=== PATIENT | male | born 1940 | race Caucasian/White ===

== ENCOUNTER → 2021-06-10 09:45 | Outpatient (BNVA) | payer MEDICARE, OTHER, SELFPAY | PROVIDERS: PCP Family Medicine; Visit Provider Internal Medicine Pulmonary Disease | DX: J45.909 Unspecified asthma, uncomplicated (principal) | CPT/HCPCS: 99202 ==

== ENCOUNTER → 2021-12-04 11:08 | Outpatient (BNVA) | payer MEDICARE, OTHER, SELFPAY | PROVIDERS: PCP Family Medicine; Visit Provider Internal Medicine Pulmonary Disease | DX: J45.909 Unspecified asthma, uncomplicated (principal) | CPT/HCPCS: 99212 ==

== ENCOUNTER → 2022-06-09 09:43 | Outpatient (BNVA) | payer MEDICARE, OTHER, SELFPAY | PROVIDERS: PCP Family Medicine; Visit Provider Internal Medicine Pulmonary Disease | DX: J45.909 Unspecified asthma, uncomplicated (principal) | CPT/HCPCS: 99212 ==

== ENCOUNTER 2022-07-15 07:52 | Outpatient (REF) | payer MEDICARE, OTHER, SELFPAY ==
--- NOTE | 2022-07-15 13:03 | PFT_ITS ---
FLOWS: FEV1 121% of predicted at 3.12 L. FVC 102% of predicted at 3.78 L. FEV1 to FVC ratio of 0.83. No bronchodilator response except in small to medium airways. LUNG VOLUMES: Total lung capacity 95% predicted at 6.48 L. Residual volume 104% of predicted at 2.73 L. Slow vital capacity 90% of predicted at 3.75 L. Expiratory reserve volume 76% of predicted at 0.79 L. Diffusion capacity is normal. IMPRESSION: No obstructive or restrictive ventilatory defect. No bronchodilator response except in small to medium airways. Essentially normal pulmonary function test. MD EFFIE Black/MODL / [id number]
== END 2022-07-15 07:53 | disposition home or self-care (01) ==
LOC: HO.RESP 07:52
PROVIDERS: PCP Family Medicine; Visit Provider Internal Medicine Pulmonary Disease
DX: J45.909 Unspecified asthma, uncomplicated (principal)
CPT/HCPCS: 94060; 94727; 94729

== ENCOUNTER 2022-09-05 09:05 | Emergency (ER) | payer MEDICARE, OTHER, SELFPAY ==
--- NOTE | ~2022-09-05 | US_ITS ---
EXAMINATION: US VENOUS ULTRASOUND WITH DOPPLER LOWER EXTREMITY, BILATERAL CLINICAL INFORMATION: Faint pedal pulses COMPARISON: None TECHNIQUE: Ultrasound of the deep veins is performed from the hip to the calf with compression sonography and color and pulse Doppler assessment. Spectral analysis with color-flow imaging is performed. FINDINGS: RIGHT: There is normal venous compression and respiratory variation and augmented flow. The visualized common femoral vein, superficial femoral vein, profunda femoral vein, popliteal vein, and the trifurcation region shows no evidence of deep venous thrombosis. There is no significant popliteal fossa cyst. LEFT: There is normal venous compression and respiratory variation and augmented flow. The visualized common femoral vein, superficial femoral vein, profunda femoral vein, popliteal vein, and the trifurcation region shows no evidence of deep venous thrombosis. There is no significant popliteal fossa cyst. If the patient's symptoms persist, followup ultrasound in 5 days 7 days might be of value to exclude proximal propagation from a non-visualized calf vein. US/US venous duplex LE BI IMPRESSION: No DVT demonstrated in the bilateral lower extremity.
--- NOTE | ~2022-09-05 | CT_ITS ---
EXAMINATION: CT ANGIOGRAPHY LEGS WITH RUNOFF CLINICAL INFORMATION: Evaluate stenosis COMPARISON: Lower extremity arterial ultrasound September 15, 2022 TECHNIQUE: Axial imaging was performed through the abdomen, pelvis and lower extremities following the administration of 99 mL's Omnipaque [address] examination was performed using dose optimization techniques as appropriate, variously including the following: *Automated exposure control *Adjustment of mA and/or kV according to patient size (this includes techniques or standardized protocols for targeted exams where dose is matched to indication/reason for exam; i.e. extremities or head) *Use of iterative reconstruction technique DLP: 343 mGy-cm FINDINGS: VASCULAR FINDINGS: The abdominal aorta is normal in caliber but demonstrates moderate atherosclerotic disease. The celiac access and takeoff of the superior mesenteric artery are diseased but demonstrate only mild stenosis. There is mild stenosis at the takeoff of the left renal artery and moderate stenosis at the takeoff of the right renal artery, however, both renal arteries are patent. The inferior mesenteric artery demonstrates ostial stenosis but is patent. Mild stenosis within the right common iliac artery. Right external iliac artery is widely patent. Right internal iliac artery is diseased but patent. There is mild narrowing of the right common femoral artery. Right profundus femoris artery is patent. There is scattered moderate atherosclerotic disease throughout the right superficial femoral artery with a few scattered areas of mild to moderate stenoses and an area of severe stenosis within the distal right superficial femoral artery (image [id number], series 6). The popliteal artery is severely diseased but appears patent. Severe atherosclerotic disease throughout the deep arteries of the calf limits evaluation for patency within the vessels, however, there appears to be a three-vessel runoff of the right calf. Mild stenosis of the left common iliac artery. The left external iliac artery is widely patent. Left internal iliac artery is diseased but patent. Severe stenosis at the junction of the left common femoral artery and proximal superficial femoral artery (image [id number]). Left profundus femoris artery is patent. There is scattered moderate atherosclerotic disease throughout the majority of the left superficial femoral artery with scattered mild to moderate stenoses. There is an area of severe stenosis within the distal aspect of the left superficial femoral artery (image [id number]). The left popliteal artery is diseased and demonstrates moderate stenosis. Severe atherosclerotic disease throughout the deep arteries of the calf limits evaluation for patency within the vessels, however, there appears to be a three-vessel runoff of the left calf. NONVASCULAR FINDINGS: Visualized portion of the liver are unremarkable. The gallbladder is normal in appearance. The pancreas is normal in appearance. Visualized portions of the spleen are unremarkable. The adrenal glands are unremarkable. Symmetrically enhancing kidneys. There is no hydronephrosis. Visualized loops of small and large bowel are normal in caliber. There is a mild to moderate stool burden throughout the majority the colon with a prominent stool burden within the rectal vault. Normal appendix. The bladder is relatively decompressed but grossly unremarkable. The prostate gland is not enlarged. There is no gross free pelvic fluid. No inguinal lymphadenopathy. Severe diffuse degenerative changes of the spine. CT/CT angio abd aorta runoff IMPRESSION: 1. Severe stenosis at the junction of the left common femoral artery and proximal superficial femoral artery. 2. Severe stenosis within the distal aspect of the left superficial femoral artery. 3. Severe stenosis within the distal aspect of the right superficial femoral artery. 4. 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 This was better appreciated on ultrasound imaging from earlier today.
--- NOTE | ~2022-09-05 | US_ITS ---
EXAMINATION: ULTRASOUND ARTERIAL DUPLEX LOWER EXTREMITY BILATERAL CLINICAL INFORMATION: Faint pedal pulses COMPARISON: None TECHNIQUE: Grayscale, color and spectral Doppler imaging was obtained of the deep arterial system of both lower extremities. FINDINGS: Right lower extremity: Scattered atherosclerotic disease. Patent deep arterial system of the right lower extremity from the common femoral artery through the calf. Normal triphasic waveforms are noted within the common femoral artery and proximal portion of the right superficial femoral artery with primarily monophasic waveforms throughout the remainder of the right lower extremity consistent with peripheral vascular disease. No focally elevated velocities to suggest an area of hemodynamically significant stenosis. Left lower extremity: Scattered atherosclerotic disease. Patent deep arterial system of the left lower extremity from the common femoral artery through the calf. Elevated velocities within the left common femoral artery suggests an area of hemodynamically significant stenosis. Normal multiphasic waveforms are present within the right superficial femoral artery although primarily monophasic waveforms are noted within the popliteal artery suggesting peripheral vascular disease. US/US arterial duplex LE BI IMPRESSION: 1. Peripheral vascular disease of the bilateral lower extremities. 2. Elevated velocities within the left common femoral artery suggests an area of hemodynamically significant stenosis.
[2022-09-05 09:12] VITALS: BP 181/93; PULSE 83; RESP 16; TEMP 36.6; O2SAT 100; BMI 26.4
--- NOTE | 2022-09-05 10:26 | ECG_ITS ---
Test Reason : LIGHTHEADEDNESS Blood Pressure : / mmHG Vent. Rate : 059 BPM Atrial Rate : 059 BPM P-R Int : 150 ms QRS Dur : 094 ms QT Int : 428 ms P-R-T Axes : 058 -28 -10 degrees QTc Int : 423 ms Sinus bradycardia Otherwise normal ECG No previous ECGs available Referred By: Meg Judd Electronically Signed By:Ryan Saleh
--- NOTE | 2022-09-05 10:26 | ED.GENADULT ---
HPI - General Adult General Chief complaint: General Medical Stated complaint: HBP, pain in L leg, quest blood clot Time Seen by Provider: 09/05/22 09:54 Source: patient Mode of arrival: ambulatory History of Present Illness HPI narrative: 82-year-old male former 30+ pack-year smoker, asthma, known blockage in RLE followed by Ant on baby ASA, presenting to the ED complaining of brief episode of lightheadedness/dizziness on [place] the mall lasting a few seconds, self resolved with assoc HTN 180's/90. 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 and 0.5mg at night. Now reports LLE pain x2 days, and RLE numbness/feeling cold x today. denies dizziness/ lightheadedness at present, CP/SOB, headache, vision change/loss, weakness, lower extremity edema Onset (ago): day(s) Related Data Home Medications Medication Instructions Recorded Confirmed albuterol sulfate 90 mcg/actuation 2 puff inhalation Q6H PRN 06/10/21 aerosol inhaler amlodipine 5 mg-valsartan 320 mg tab PO 06/10/21 tablet aspirin 81 mg tablet,delayed 81 mg PO DAILY 06/10/21 release atorvastatin 20 mg tablet mg PO 06/10/21 brimonidine 0.2 % eye drops drp ophthalmic (eye) 06/10/21 metoprolol succinate 25 mg mg PO 06/10/21 tablet,extended release 24 hr nitroglycerin 0.4 mg sublingual 0.4 mg sublingual Q5M PRN 06/10/21 tablet (Nitrostat) gabapentin 300 mg capsule 300 mg PO DAILY 06/09/22 irbesartan 300 mg tablet 300 mg PO DAILY 06/09/22 latanoprost 0.005 % eye drops 0 drp ophthalmic (eye) 06/09/22 Previous Rx's Medication Instructions Recorded Flovent HFA 110 mcg/actuation 2 puff inhalation BID 30 days #12 05/25/22 aerosol inhaler (fluticasone grams propionate) fluticasone 232 mcg-salmeterol 14 1 inh inhalation BID 30 days #1 ea 08/20/22 mcg/actuation breath activated powdr (AirDuo RespiClick) clopidogrel 75 mg tablet (Plavix) 75 mg PO DAILY 30 days #30 tabs 09/05/22 Allergies Allergy/AdvReac Type Severity Reaction Status Date / Time No Known Allergies Allergy Verified 12/04/21 11:11 Review of Systems Review of Systems: Constitutional: No Fever, No Chills, No Fatigue, No Malaise ENT/Mouth: No Ear Pain, No Nasal Congestion, No sore throat, No Rhinorrhea, No Swallowing Difficulty Eyes: No Eye Pain, No Swelling, No Redness, No Vision Changes Cardiovascular: No Chest Pain, No SOB, No Dyspnea on Exertion, No Orthopnea, No Edema, No Palpitations Respiratory: No Cough, No Sputum, No Dyspnea Gastrointestinal: No Nausea, No Vomiting, No Diarrhea, No Constipation, No Abdominal pain Genitourinary: No irregular bleeding, No Dysuria, No Urinary Incontinence/retention, No Flank Pain, No Urinary Flow Changes Musculoskeletal: + joint pain, No Myalgias, No Joint Swelling Skin: No Skin Lesions, No rash Neuro: No Weakness, + Numbness, + Paresthesias, No Loss of Consciousness, + Dizziness/ lightheadedness (resolved), No Headache Yes all other systems are reviewed and are negative Constitutional: Constitutional: Reports as per HPI Neurologic: Denies Abnormal speech present [facility] Past Medical History Attestation statement: The following information was validated with the patient. Social History Social History Alcohol intake: unknown Smoked in Last 30 Days: No Use of substances other than those prescribed or required for medical reasons: Unknown Advance Directives: No Advance Directives Information Provided: Yes Physical Exam ED Vital Signs: Vital Signs - 24 hr 09/05/22 09:12 09/05/22 11:06 09/05/22 11:12 Temperature 98 F Pulse Rate 83 58 65 Respiratory Rate 16 19 Blood Pressure 181/93 H 139/60 148/70 H Pulse Oximetry 100 94 Oxygen Delivery Method Room Air Room Air 09/05/22 11:07 09/05/22 11:09 09/05/22 12:00 Temperature 98.9 F Pulse Rate 59 65 65 Respiratory Rate 18 Blood Pressure 157/64 H 148/70 H 148/70 H Pulse Oximetry 97 Oxygen Delivery Method Room Air BMI result Body Mass Index 26.4 Const General: cooperative, comfortable, no acute distress and well developed Orientation/consciousness: patient oriented x3 Limitations: no limitations HENMT Head: Yes normal to inspection and Yes atraumatic Ears: hearing grossly normal bilaterally General nose exam: Normal external nose present Face and sinus: Yes normal facial exam Throat: Yes posterior oropharynx normal and Yes uvula midline Eyes General: appearance normal, both eyes and all related structures Pupils: Equal, round and reactive pupils present EOM: EOMs intact bilaterally Neck Neck: Yes normal visual inspection and Yes no meningeal signs Resp Effort & Inspection: normal respiratory effort and no respiratory distress Auscultation: clear to auscultation bilaterally, no crackles, no rales and no rhonchi Cardio Other: bilateral PT and DP pulses dooplerable Rate: regular rate Heart sounds: S1 normal heart sound present and S2 normal heart sound present GI Inspection: Yes normal to inspection Palpation (GI): Soft to palpation, nontender, no guarding and not rigid Skin Rashes: no rashes Wounds: no wounds Neuro General: patient oriented x3, gait normal, tone normal, moves all extremities, no meningeal signs, no focal motor deficits and CN's II-XI intact bilaterally Cranial nerves: Yes CN's II-XII intact bilaterally and Yes Equal, round and reactive pupils present Cognition (Neuro): normal cognition Speech: No Abnormal speech present Gait exam (Neuro): Normal gait present Motor exam (neuro): 5/5 motor strength present throughout and Pronator motor function not present Extrem Other: no appreciable pedal edema/erythema or ecchymosis. No calf ttp General: Yes normal to inspection Course Course Course Narrative: -1141-- no leukocytosis. H&H stable. BUN mildly elevated at 18. BNP 111 - COVID-19/influenza negative US arterial duplex LE BI IMPRESSION: 1.? Peripheral vascular disease of the bilateral lower extremities. 2.? Elevated velocities within the left common femoral artery suggests an area of hemodynamically significant stenosis. >Will consult vascular Dr. Burton US venous duplex LE BI IMPRESSION: No DVT demonstrated in the bilateral lower extremity. >1200-- vascular recommended with patient's acute pain/ new finding transfer to [facility] >> [facility] not accepting, will try [facility] > spoke with vascular surgeon Dr. Escamilla at [facility] who recommended CTA abdomen pelvis with runoff for further evaluation prior to transfer and re-consultation with our vascular w/results - repeat troponin equivocal CT angio abd aorta runoff IMPRESSION: 1.? Severe stenosis at the junction of the left common femoral artery and proximal superficial femoral artery. 2.? Severe stenosis within the distal aspect of the left superficial femoral artery. 3.? Severe stenosis within the distal aspect of the right superficial femoral artery. 4.? 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 This was better appreciated on ultrasound imaging from earlier today. ? >> patient reports symptomatic improvement, states pain is subsiding. Re consulted vascular Dr. Burton who recommended patient be discharged on aspirin and Plavix daily with close outpatient follow-up. Patient admits he has follow-up with his vascular surgeon at [facility] on , will call to see if there is an earlier appointment available. Results discussed with patient including worrisome signs and symptoms and strict return precautions, and when to return to the emergency department. They verbalized understanding and feel safe for discharge at this time. Medications Administered Discontinued Medications Generic Name Dose Route Start Last Admin Trade Name Dewayne PRN Reason Stop Dose Admin Clopidogrel Bisulfate 75 mg 09/05/22 15:59 09/05/22 16:09 Clopidogrel Bisulfate 75 Mg Tablet PO 09/05/22 16:00 75 mg ONCE ONE Administration Sodium Chloride 500 mls @ 999 mls/hr 09/05/22 14:15 09/05/22 14:44 Ns IV 09/05/22 14:45 Infused .Q31M ANT Infusion Iohexol 100 ml 09/05/22 14:17 09/05/22 14:17 Iohexol 350 Mg/Ml 100 Ml Infus..Btl IV 09/05/22 14:18 100 ml ONCE ONE Administration Medical Decision Making Medical Decision Making MDM Narrative: 82-year-old male former 30+ pack-year smoker, asthma, known blockage in RLE followed by Ant on baby ASA, presenting to the ED complaining of brief episode of lightheadedness/dizziness on [place] the mall lasting a few seconds, now w/ LLE pain x2 days, and RLE numbness/feeling cold x today. On exam mildly hypertensive 181/93, NAD, nontoxic appearing, bilateral lower extremity pulses dopplerable, no focal neuro deficits, nontoxic appearing. Concern for peripheral arterial disease versus DVT. Rule out atypical ACS vs metabolic/infectious etiologies. Low suspicion for CVA/TIA or ICH plan: EKG, labs, orthostatics, arterial and venous duplex ultrasound Please refer to course for remaining clinical decision making, interpretation of labs/imaging results, and discussions with consultants and/or family members. Differential Diagnosis Differential Diagnoses: The differential diagnosis associated with the presentation includes As above Admission/Observation Consideration of admission/observation: Escalation of care including admission/observation considered Consult Healthcare Provider Management of the patient was discussed with: [employer] Lab Data MDM Lab Attestation statement: I reviewed the patient's lab results. 09/05/22 11:03 09/05/22 11:03 Labs: Lab Results 09/05/22 09/05/22 09/05/22 Range/Units 11:02 11:02 11:02 WBC (4.8-10.8) X10*3/uL RBC (4.60-5.80) X10*6/uL Hgb (14.0-18.0) g/dl Hct (42.0-52.0) % MCV (80.0-98.0) fL MCH (27.0-33.0) pg MCHC (31.0-36.0) g/dl RDW (11.0-16.0) % Plt Count (160-400) X10*3/uL MPV (9.4-12.4) fL Immature Gran % (Auto) (0.0-0.4) % Neut % (Auto) (45-73) % Lymph % (Auto) (20-40) % [place] % (Auto) (2-11) % Eos % (Auto) (0-4) % Baso % (Auto) (0-2) % Lymph # (Auto) (1.2-4.9) X10*3/uL [place] # (Auto) (0.1-1.2) X10*3/uL Eos # (Auto) (0.0-0.4) X10*3/uL Baso # (Auto) (0.0-0.2) X10*3/uL Abs Immat Gran (auto) (0.00-0.03) X10*3/uL Absolute Neuts (auto) (2.0-8.3) x10*3/uL Absolute Nucleated RBC (0.0-0.012) X10*3/uL Nucleated RBC % (auto) (0.0-0.2) /100WBC PT (10.0-13.1) SEC INR (0.9-1.1) APTT (26.0-36.4) SEC Sodium (135-145) mmol/L Potassium (3.3-5.1) mmol/L Chloride (96-108) mmol/L Carbon Dioxide (22-29) mmol/L Anion Gap (12-20) BUN (9-16) mg/dL Creatinine (0.5-1.4) mg/dL Estim Creat Clear Calc Estimated GFR Random Glucose (60-115) mg/dL Calcium (8.4-10.2) mg/dL Magnesium (1.6-2.6) mg/dL Total Bilirubin (0.0-1.0) mg/dL Direct Bilirubin (0.0-0.5) mg/dL AST (5-37) U/L ALT (0-40) U/L Alkaline Phosphatase (39-117) U/L Troponin I High Sens 5.8 (<3.5-35.0) ng/L B-Natriuretic Peptide 111 H (<100) pg/mL Total Protein (6.5-8.0) g/dL Albumin (3.5-5.0) g/dL COVID-19 (MICHAEL) (Negative) COVID-19 Clin Com Influenza Type A (LUPE) Negative (Negative) Influenza Type B (LUPE) Negative (Negative) Influenza A & B Note See Note 09/05/22 09/05/22 09/05/22 Range/Units 11:02 11:03 11:03 WBC 9.9 (4.8-10.8) X10*3/uL RBC 4.42 L (4.60-5.80) X10*6/uL Hgb 13.6 L (14.0-18.0) g/dl Hct 40.3 L (42.0-52.0) % MCV 91.2 (80.0-98.0) fL MCH 30.8 (27.0-33.0) pg MCHC 33.7 (31.0-36.0) g/dl RDW 13.8 (11.0-16.0) % Plt Count 208 (160-400) X10*3/uL MPV 9.4 (9.4-12.4) fL Immature Gran % (Auto) 0.4 (0.0-0.4) % Neut % (Auto) 85.4 H (45-73) % Lymph % (Auto) 7.0 L (20-40) % [place] % (Auto) 6.3 (2-11) % Eos % (Auto) 0.2 (0-4) % Baso % (Auto) 0.7 (0-2) % Lymph # (Auto) 0.7 L (1.2-4.9) X10*3/uL [place] # (Auto) 0.6 (0.1-1.2) X10*3/uL Eos # (Auto) 0.0 (0.0-0.4) X10*3/uL Baso # (Auto) 0.1 (0.0-0.2) X10*3/uL Abs Immat Gran (auto) 0.04 H (0.00-0.03) X10*3/uL Absolute Neuts (auto) 8.5 H (2.0-8.3) x10*3/uL Absolute Nucleated RBC 0.000 (0.0-0.012) X10*3/uL Nucleated RBC % (auto) 0.0 (0.0-0.2) /100WBC PT (10.0-13.1) SEC INR (0.9-1.1) APTT (26.0-36.4) SEC Sodium 139 (135-145) mmol/L Potassium 4.2 (3.3-5.1) mmol/L Chloride 104 (96-108) mmol/L Carbon Dioxide 26 (22-29) mmol/L Anion Gap 13 (12-20) BUN 18 H (9-16) mg/dL Creatinine 0.76 (0.5-1.4) mg/dL Estim Creat Clear Calc 72.5 Estimated GFR > 60 Random Glucose 117 H (60-115) mg/dL Calcium 9.4 (8.4-10.2) mg/dL Magnesium 1.9 (1.6-2.6) mg/dL Total Bilirubin 0.5 (0.0-1.0) mg/dL Direct Bilirubin 0.2 (0.0-0.5) mg/dL AST 19 (5-37) U/L ALT 16 (0-40) U/L Alkaline Phosphatase 78 (39-117) U/L Troponin I High Sens (<3.5-35.0) ng/L B-Natriuretic Peptide (<100) pg/mL Total Protein 6.7 (6.5-8.0) g/dL Albumin 4.4 (3.5-5.0) g/dL COVID-19 (MICHAEL) Negative (Negative) COVID-19 Clin Com See Note Influenza Type A (LUPE) (Negative) Influenza Type B (LUPE) (Negative) Influenza A & B Note 09/05/22 09/05/22 Range/Units 11:03 14:31 WBC (4.8-10.8) X10*3/uL RBC (4.60-5.80) X10*6/uL Hgb (14.0-18.0) g/dl Hct (42.0-52.0) % MCV (80.0-98.0) fL MCH (27.0-33.0) pg MCHC (31.0-36.0) g/dl RDW (11.0-16.0) % Plt Count (160-400) X10*3/uL MPV (9.4-12.4) fL Immature Gran % (Auto) (0.0-0.4) % Neut % (Auto) (45-73) % Lymph % (Auto) (20-40) % [place] % (Auto) (2-11) % Eos % (Auto) (0-4) % Baso % (Auto) (0-2) % Lymph # (Auto) (1.2-4.9) X10*3/uL [place] # (Auto) (0.1-1.2) X10*3/uL Eos # (Auto) (0.0-0.4) X10*3/uL Baso # (Auto) (0.0-0.2) X10*3/uL Abs Immat Gran (auto) (0.00-0.03) X10*3/uL Absolute Neuts (auto) (2.0-8.3) x10*3/uL Absolute Nucleated RBC (0.0-0.012) X10*3/uL Nucleated RBC % (auto) (0.0-0.2) /100WBC PT 12.0 (10.0-13.1) SEC INR 1.0 (0.9-1.1) APTT 31.5 (26.0-36.4) SEC Sodium (135-145) mmol/L Potassium (3.3-5.1) mmol/L Chloride (96-108) mmol/L Carbon Dioxide (22-29) mmol/L Anion Gap (12-20) BUN (9-16) mg/dL Creatinine (0.5-1.4) mg/dL Estim Creat Clear Calc Estimated GFR Random Glucose (60-115) mg/dL Calcium (8.4-10.2) mg/dL Magnesium (1.6-2.6) mg/dL Total Bilirubin (0.0-1.0) mg/dL Direct Bilirubin (0.0-0.5) mg/dL AST (5-37) U/L ALT (0-40) U/L Alkaline Phosphatase (39-117) U/L Troponin I High Sens 5.6 (<3.5-35.0) ng/L B-Natriuretic Peptide (<100) pg/mL Total Protein (6.5-8.0) g/dL Albumin (3.5-5.0) g/dL COVID-19 (MICHAEL) (Negative) COVID-19 Clin Com Influenza Type A (LUPE) (Negative) Influenza Type B (LUPE) (Negative) Influenza A & B Note Independent Interpretation I performed an independent interpretation of an: EKG ( my interpretation: Sinus Jass at a rate of 59. Slurred S wave in lead 1, inverted T-wave in lead 3, peak T-waves in V3 through V5. No STEMI) Radiology Impression Discussion of test interpretation with radiology: I have reviewed the radiologist's reading. External Record Review External record reviewed: Office record Prescription Management I considered prescription management with: Pain Medication Chronic Conditions Patient?s care impacted by: Hypertension Critical Care Time Critical Care Time Critical Care Time: Yes Total Critical Care Time: 50 Attestation: I have personally provided critical care time exclusive of time spent on separately billable procedures. Time includes review of lab data, radiology results, discussion with consultants, and monitoring for potential decompensation. Intervention performed as documented. Discharge Plan Discharge Clinical Impression: Peripheral arterial disease Patient Disposition: Home, Self-Care Instructions: Peripheral Artery Disease (ED) Additional Instructions: Your blood work was reassuring. Your CAT scan and ultrasound appreciate severe arterial stenosis of your bilateral lower extremities. After speaking with our vascular surgeon it is recommended you take daily aspirin and Plavix you need very close follow-up with your vascular surgeon , your also supplied with our vascular surgeons information If symptoms persist, worsen, your legs change color, become increasingly painful, numb, or weak return to the emergency department immediately Prescriptions: New clopidogrel [Plavix] 75 mg tablet 75 mg PO DAILY 30 Days Qty: 30 0RF No Action Flovent HFA 110 mcg/actuation HFA aerosol inhaler 2 puff inhalation BID 30 Days Qty: 12 6RF fluticasone propion-salmeterol [AirDuo RespiClick] 232-14 mcg/actuation aerosol powdr breath activated 1 inh inhalation BID 30 Days Qty: 1 1RF atorvastatin 20 mg tablet PO amlodipine-valsartan 5-320 mg tablet PO metoprolol succinate 25 mg tablet extended release 24 hr PO brimonidine 0.2 % drops ophthalmic (eye) aspirin 81 mg tablet,delayed release (DR/EC) 81 mg PO DAILY albuterol sulfate 90 mcg/actuation HFA aerosol inhaler 2 puff inhalation Q6H PRN nitroglycerin [Nitrostat] 0.4 mg tablet, sublingual 0.4 mg sublingual Q5M PRN Rx Instructions: do not exceed 3 doses per episode gabapentin 300 mg capsule 300 mg PO DAILY latanoprost 0.005 % drops 0 drp ophthalmic (eye) irbesartan 300 mg tablet 300 mg PO DAILY Referrals: [facility] [place] Vascular Services [Provider Group] - 3 days Interventions: ED Discharge Assessment Last Done: 09/05/22 16:18 Discharge Date/Time: 09/05/22 16:18
[2022-09-05 11:06] VITALS: BP 139/60; PULSE 58
[2022-09-05 11:07] VITALS: BP 157/64; PULSE 59
[2022-09-05 11:09] VITALS: BP 148/70; PULSE 65
[2022-09-05 11:09] LABS: MANUAL DIFF FLAG NO
[2022-09-05 11:12] VITALS: BP 148/70; PULSE 65; RESP 19; O2SAT 94
[2022-09-05 11:14] LABS: Basophils Absolute Auto 0.1 X10*3/uL (0.0-0.2); Basophils Percent Auto 0.7 % (0-2); Eosinophils Percent Auto 0.2 % (0-4); Hematocrit 40.3 % (42.0-52.0); Hemoglobin 13.6 g/dl (14.0-18.0); Imm Gran Abs Auto 0.04 X10*3/uL (0.00-0.03); Imm Gran Pct Auto 0.4 % (0.0-0.4); Lymphocytes Absolute Auto 0.7 X10*3/uL (1.2-4.9); Mean Corpuscular HGB Conc 33.7 g/dl (31.0-36.0); Mean Corpuscular Hemoglobin 30.8 pg (27.0-33.0); Mean Corpuscular Volume 91.2 fL (80.0-98.0); Mean Platelet Volume 9.4 fL (9.4-12.4); Monocytes Absolute Auto 0.6 X10*3/uL (0.1-1.2); Monocytes Percent Auto 6.3 % (2-11); Neutrophils Absolute Auto 8.5 x10*3/uL (2.0-8.3); Neutrophils Percent Auto 85.4 % (45-73); Platelet Count 208 X10*3/uL (160-400); Red Blood Count 4.42 X10*6/uL (4.60-5.80); Red Cell Distribution Width 13.8 % (11.0-16.0); White Blood Count 9.9 X10*3/uL (4.8-10.8)
[2022-09-05 11:22] LABS: IDNOW Serial# 16C4AD1C
[2022-09-05 11:23] LABS: COVID-19 Test Negative (Negative)
[2022-09-05 11:26] LABS: IDNOW Serial# 16C4AD1C; Influenza A Negative (Negative); Influenza B2 Negative (Negative)
[2022-09-05 11:26] LABS: Partial Thromboplastin Time 31.5 SEC (26.0-36.4)
[2022-09-05 11:30] LABS: Alanine Aminotransferase 16 U/L (0-40); Albumin Level 4.4 g/dL (3.5-5.0); Alkaline Phosphatase 78 U/L (39-117); Anion Gap 13 (12-20); Aspartate Amino Transferase 19 U/L (5-37); Bilirubin Direct 0.2 mg/dL (0.0-0.5); Bilirubin Total 0.5 mg/dL (0.0-1.0); Blood Urea Nitrogen 18 mg/dL (9-16); Calcium 9.4 mg/dL (8.4-10.2); Carbon Dioxide 26 mmol/L (22-29); Chloride 104 mmol/L (96-108); Creatinine Clr Calc Pharmacy 72.5; Estimated Glomerular Filt Rate > 60; Glucose Random 117 mg/dL (60-115); Magnesium 1.9 mg/dL (1.6-2.6); Potassium 4.2 mmol/L (3.3-5.1); Sodium 139 mmol/L (135-145); Total Protein 6.7 g/dL (6.5-8.0)
[2022-09-05 11:37] LABS: B Type Natriuretic Peptide 111 pg/mL (<100)
[2022-09-05 12:00] VITALS: BP 148/70; PULSE 65; RESP 18; TEMP 37.2; O2SAT 97
--- NOTE | 2022-09-05 12:05 | PC.NURSE ---
Pedal pulses present bilaterally, soft w/ doppler. Sites assess: DP and PT felt.
--- NOTE | 2022-09-05 12:15 | MHC.EDTECH ---
pt to be transfered to another hospital per provider. [facility] declined due to being at max capacity. [facility] was then contacted and approved the transfer for pt. awaiting bed assignment . Provider aware
[2022-09-05 12:31] LABS: Troponin-I High Sensitivity 5.8 ng/L (<3.5-35.0)
[2022-09-05] MEDS: 0.9 % Sodium Chloride 500 ML 999 ML IV (14:10)
[2022-09-05] MEDS: iohexoL 350 MG/ML 100 ML INFUS..BTL IV (14:17)
[2022-09-05 14:56] LABS: Troponin-I High Sensitivity 5.6 ng/L (<3.5-35.0)
[2022-09-05] MEDS: Clopidogrel Bisulfate 75 MG TABLET PO (16:09)
== END 2022-09-05 16:18 | disposition home or self-care (01) ==
PROVIDERS: Physician Assistant; Emergency Provider Emergency Medicine Emergency Medical Services; PCP Family Medicine
DX: I73.9 Peripheral vascular disease, unspecified (principal); R60.0 Localized edema; R42 Dizziness and giddiness; R06.02 Shortness of breath; Z20.828 Contact with and (suspected) exposure to other viral communicable diseases; Z79.899 Other long term (current) drug therapy
CPT/HCPCS: 36415; 75635; 80048; 80076; 83735; 83880; 84484; 85025; 85610; 85730; 87502; 87635; 93005; 93925; 93970; 96360; 96361; 99285; Q9967

== ENCOUNTER 2023-01-03 10:16 | Emergency (ER) | payer MEDICARE, OTHER, SELFPAY ==
--- NOTE | ~2023-01-03 | XR_ITS ---
EXAMINATION: XR CHEST CLINICAL INFORMATION: Chest pain COMPARISON: None available. TECHNIQUE: 2 views of the chest were obtained. FINDINGS: No airspace consolidation or vascular congestion observed. Pleural surfaces appear to be clear. Hiatal hernia noted. There are multilevel thoracic spondylitic changes. Slight wedge deformities approximate level of T6-T8, not appearing hyperacute. XR/XR chest 2V IMPRESSION: No evidence for acute process. Hiatal hernia.
--- NOTE | 2023-01-03 10:18 | ECG_ITS ---
Test Reason : dizziness Blood Pressure : / mmHG Vent. Rate : 062 BPM Atrial Rate : 062 BPM P-R Int : 146 ms QRS Dur : 100 ms QT Int : 408 ms P-R-T Axes : 026 -26 021 degrees QTc Int : 414 ms Normal sinus rhythm Moderate voltage criteria for LVH, may be normal variant ( R in aVL , Luis product ) Borderline ECG When compared with ECG of 05-SEP-2022 10:55, No significant change was found Referred By: Generic ED Physician Electronically Signed By:CARISA SAVAGE
[2023-01-03 10:24] VITALS: BP 153/55; PULSE 66; RESP 18; TEMP 36.6; O2SAT 99; BMI 26.9
[2023-01-03 11:04] LABS: MANUAL DIFF FLAG NO
[2023-01-03 11:06] LABS: Basophils Absolute Auto 0.1 X10*3/uL (0.0-0.2); Basophils Percent Auto 1.1 % (0-2); Eosinophils Absolute Auto 0.1 X10*3/uL (0.0-0.4); Eosinophils Percent Auto 1.4 % (0-4); Hematocrit 39.8 % (42.0-52.0); Hemoglobin 13.1 g/dl (14.0-18.0); Imm Gran Abs Auto 0.02 X10*3/uL (0.00-0.03); Imm Gran Pct Auto 0.3 % (0.0-0.4); Lymphocytes Absolute Auto 0.7 X10*3/uL (1.2-4.9); Lymphocytes Percent Auto 9.9 % (20-40); Mean Corpuscular HGB Conc 32.9 g/dl (31.0-36.0); Mean Corpuscular Hemoglobin 30.8 pg (27.0-33.0); Mean Corpuscular Volume 93.6 fL (80.0-98.0); Mean Platelet Volume 9.2 fL (9.4-12.4); Monocytes Absolute Auto 0.4 X10*3/uL (0.1-1.2); Monocytes Percent Auto 6.5 % (2-11); Neutrophils Absolute Auto 5.4 x10*3/uL (2.0-8.3); Neutrophils Percent Auto 80.8 % (45-73); Platelet Count 206 X10*3/uL (160-400); Red Blood Count 4.25 X10*6/uL (4.60-5.80); Red Cell Distribution Width 13.2 % (11.0-16.0); White Blood Count 6.7 X10*3/uL (4.8-10.8)
[2023-01-03 11:25] LABS: Alanine Aminotransferase 24 U/L (0-40); Alkaline Phosphatase 75 U/L (39-117); Anion Gap 12 (12-20); Aspartate Amino Transferase 22 U/L (5-37); Bilirubin Total 0.5 mg/dL (0.0-1.0); Blood Urea Nitrogen 14 mg/dL (9-16); Calcium 9.2 mg/dL (8.4-10.2); Carbon Dioxide 28 mmol/L (22-29); Chloride 107 mmol/L (96-108); Creatinine Clr Calc Pharmacy 65.5; Estimated Glomerular Filt Rate > 60; Glucose Random 114 mg/dL (60-115); Potassium 4.1 mmol/L (3.3-5.1); Sodium 143 mmol/L (135-145); Total Protein 6.1 g/dL (6.5-8.0)
[2023-01-03 11:31] LABS: B Type Natriuretic Peptide 165 pg/mL (<100)
[2023-01-03 11:33] LABS: Troponin-I High Sensitivity 4.7 ng/L (<3.5-35.0)
--- NOTE | 2023-01-03 11:58 | ED.GENADULT ---
HPI - General Adult General Chief complaint: General Medical Stated complaint: chest pain Time Seen by Provider: 01/03/23 11:32 Source: patient Mode of arrival: ambulatory Limitations: no limitations History of Present Illness HPI narrative: This is a 82-year-old male, with a past medical history of coronary artery disease, peripheral vascular disease with claudication, chyperlipidemia, GERD, hypertension, spinal stenosis, polymyalgia rheumatica, asthma, COPD, and lung mass, who presents emergency department today for evaluation of dizziness and chest pain. Patient reports that yesterday while he was resting he felt lightheaded with jaw pain and some tightness in his chest. He took his blood pressure and was 150s/90s, which is atypical of him. He states that he took a dose of nitroglycerin. He then did not have relief and took another dose of nitroglycerin. His symptoms improved after about 2 hours. At that time he repleted his blood pressure and it improves. He then took a nap. He woke up and felt dizzy then it dropped pain again and took 2 more doses of nitroglycerin and his symptoms resolved again after several hours. Patient reports that this morning he woke up took his blood pressure and his blood pressure was elevated again and had some lightheadedness. He called his plant floor automation manager at [facility] who advised him to go to the emergency department for further evaluation. MD complaint: Dizziness, jaw pain, chest pain Relieving factors: medication (Nitroglycerin) Exacerbating factors: none Associated symptoms: denies other symptoms Treatments prior to arrival: none Related Data Home Medications Medication Instructions Recorded Confirmed albuterol sulfate 90 mcg/actuation 2 puff inhalation Q6H PRN 06/10/21 aerosol inhaler amlodipine 5 mg-valsartan 320 mg tab PO 06/10/21 tablet aspirin 81 mg tablet,delayed 81 mg PO DAILY 06/10/21 release atorvastatin 20 mg tablet mg PO 06/10/21 brimonidine 0.2 % eye drops drp ophthalmic (eye) 06/10/21 metoprolol succinate 25 mg mg PO 06/10/21 tablet,extended release 24 hr nitroglycerin 0.4 mg sublingual 0.4 mg sublingual Q5M PRN 06/10/21 tablet (Nitrostat) gabapentin 300 mg capsule 300 mg PO DAILY 06/09/22 irbesartan 300 mg tablet 300 mg PO DAILY 06/09/22 latanoprost 0.005 % eye drops 0 drp ophthalmic (eye) 06/09/22 Previous Rx's Medication Instructions Recorded Flovent HFA 110 mcg/actuation 2 puff inhalation BID 30 days #12 05/25/22 aerosol inhaler (fluticasone grams propionate) clopidogrel 75 mg tablet (Plavix) 75 mg PO DAILY 30 days #30 tabs 09/05/22 fluticasone 232 mcg-salmeterol 14 1 inh inhalation BID 30 days #1 ea 10/19/22 mcg/actuation breath activated powdr (AirDuo RespiClick) Allergies Allergy/AdvReac Type Severity Reaction Status Date / Time No Known Allergies Allergy Verified 01/03/23 10:23 Review of Systems Review of Systems: Constitutional: No Weight loss, No Fever, No Chills, No Night Sweats, No Fatigue, No Malaise ENT/Mouth: No Hearing loss, No Ear Pain, No Nasal Congestion, No Sinus Pain, No Hoarseness, No sore throat, No Rhinorrhea, No Swallowing Difficulty Eyes: No Eye Pain, No Swelling, No Redness, No Foreign Body, No Discharge, No Vision Changes Cardiovascular: +Chest Pain, No SOB, No Dyspnea on Exertion, No Orthopnea, No Edema, No Palpitations Respiratory: No Cough, No Sputum, No Wheezing, No Smoke Exposure, No Dyspnea Gastrointestinal: No Nausea, No Vomiting, No Diarrhea, No Constipation, No Abdominal pain, No Hematochezia, No Melena Genitourinary: No irregular bleeding, No Dysuria, No Urinary Frequency, No Hematuria, No Urinary Incontinence/retention, No Urgency, No Flank Pain, No Urinary Flow Changes, No Hesitancy Musculoskeletal: No joint pain, No Myalgias, No Joint Swelling Skin: No Skin Lesions, No rash Neuro: No Weakness, No Numbness, No Paresthesias, No Loss of Consciousness, + Dizziness, No Headache Psych: No Anxiety/Panic, No Depression, No SI/HI/AH/VH, No Social Issues, Heme/Lymph: No Bruising, No Bleeding,No Lymphadenopathy Endocrine: No Polyuria, No Polydipsia, No Temperature Intolerance Yes all other systems are reviewed and are negative Constitutional: Constitutional: Reports as per [facility] Social History Social History Alcohol intake: unknown Smoked in Last 30 Days: No Use of substances other than those prescribed or required for medical reasons: No Advance Directives: No Physical Exam ED Vital Signs: Vital Signs - 24 hr 01/03/23 10:24 01/03/23 12:00 Temperature 98 F 97.9 F Pulse Rate 66 51 Respiratory Rate 18 16 Blood Pressure 153/55 H 145/60 H Pulse Oximetry 99 96 Oxygen Delivery Method Room Air BMI result Body Mass Index 26.9 Const General: cooperative, comfortable and no acute distress Orientation/consciousness: patient oriented x3 Limitations: no limitations HENOR Head: Yes normal to inspection, Yes normocephalic and Yes atraumatic Ears: hearing grossly normal bilaterally General nose exam: Normal external nose present Face and sinus: Yes normal facial exam Mouth: Normal oral and palatal mucosa present, oropharynx normal and moist mucous membranes Throat: Yes posterior oropharynx normal Eyes General: appearance normal, both eyes and all related structures Eyelids: Yes eyelids normal Conjunctivae: conjunctivae normal Sclerae: sclerae normal Pupils: Equal, round and reactive pupils present EOM: EOMs intact bilaterally Neck Neck: Yes normal visual inspection, Yes full ROM and Yes no lymphadenopathy Lymphatic: no lymphadenopathy noted Chest Chest palpation & inspection: normal inspection of the chest Resp Effort & Inspection: normal respiratory effort and able to speak in complete sentences Auscultation: clear to auscultation bilaterally, no crackles, no rales, no rhonchi and no wheezes Cardio Rate: regular rate Rhythm: regular rhythm Heart sounds: S1 normal heart sound present and S2 normal heart sound present GI Inspection: Yes normal to inspection Skin General skin exam: no rashes or lesions noted Trauma: no lacerations or abrasions Wounds: no wounds Neuro General: patient oriented x3 and moves all extremities Cranial nerves: Yes Equal, round and reactive pupils present Extrem General: Yes normal to inspection Right upper extremity: normal to inspection Left upper extremity: normal to inspection Right lower extremity: normal to inspection Left lower extremity: normal to inspection Course Reevaluation(s) Reevaluation #1: Heart score is 6, troponin 4.7, discussed case with Dr. Jo. Who advises that patient should be transferred and to see if pain your [facility] will accept patient for catheterization. Also advise to start on heparin drip and aspirin. Call out to [facility]. Time: 12:51 Reevaluation #2: I spoke with Lindsey Cordon NP, from [facility] who states that patient will need to be transferred to [facility] and they will likely be secondary team. Call out to [facility] transfer line. Time: 14:54 Reevaluation #3: Dr. Joyce accepts transfer of care. Patient informs me that if patient develops any symptoms to call over to [facility] urgently and they will take patient sooner. However reports that the cardiac catheterization for are very busy and patient will be likely waiting several hours until a bed opens up for patient. Time: 16:59 Additional Reevaluation(s): Second troponin with doubling delta. There is a bed at [facility], patient will be transferred, ambulance called. Medications Administered Discontinued Medications Generic Name Dose Route Start Last Admin Trade Name Freq PRN Reason Stop Dose Admin Aspirin 325 mg 01/03/23 14:20 01/03/23 14:43 Aspirin Enteric Coated 325 Mg Tablet.Dr DOSHI 01/03/23 14:21 325 mg ONCE ONE Administration Heparin Sodium (Porcine) 4,000 unit 01/03/23 14:20 01/03/23 14:57 Heparin Sodium,Porcine 5,000 Unit/Ml Vial IVPUSH 01/03/23 14:21 4,000 unit ONCE ONE Administration Heparin Sodium/Sodium Chloride 25,000 unit in 250 mls @ 0 mls/hr 01/03/23 14:45 01/03/23 15:58 Heparin Sodium,Porcine/1/2ns IVCONT 12 units/kg/hr .Q0M ANT 9.91 mls/hr Administration Protocol Per Protocol Medical Decision Making Medical Decision Making MDM Narrative: 82-year-old male, with a past medical history of coronary artery disease, peripheral vascular disease with claudication, coronary artery disease, hyperlipidemia, GERD, hypertension, spinal stenosis, peripheral artery disease, polymyalgia rheumatica, asthma, COPD, and lung mass, who presents emergency department today for evaluation of 4 intermittent episodes of dizziness, jaw pain, and chest pain since yesterday. Patient has been followed by [facility]. Nuclear stress test performed on 09/16/2022. This test revealed EKG changes in the inferior lateral leads suggesting of ischemia. Also revealing a small, mild inferior low lateral reversible perfusion defect following CT attenuation correction. These findings were overall suggested of LCX ischemia although no exertional symptoms except leg pain were noted during exercise at above average exercise capacity. On examination, blood pressure 153/55, all other vital signs within normal limits. Patient is currently asymptomatic, no dizziness, lightheadedness, chest pain, shortness of breath, nausea, diaphoresis. Plan: Labs, EKG, chest x-ray Differential Diagnosis Differential Diagnoses: The differential diagnosis associated with the presentation includes ACS, NSTEMI, STEMI, AAA, PE, Pneumothorax, Pneumonia Admission/Observation Consideration of admission/observation: Escalation of care including admission/observation considered Lab Data MDM Lab Attestation statement: I reviewed the patient's lab results. 01/03/23 11:01/03/23 11: Labs: Lab Results 01/03/23 01/03/23 01/03/23 Range/Units 11:01 11: 11:01 WBC 6.7 (4.8-10.8) X10*3/uL RBC 4.25 L (4.60-5.80) X10*6/uL Hgb 13.1 L (14.0-18.0) g/dl Hct 39.8 L (42.0-52.0) % MCV 93.6 (80.0-98.0) fL MCH 30.8 (27.0-33.0) pg MCHC 32.9 (31.0-36.0) g/dl RDW 13.2 (11.0-16.0) % Plt Count 206 (160-400) X10*3/uL MPV 9.2 L (9.4-12.4) fL Immature Gran % (Auto) 0.3 (0.0-0.4) % Neut % (Auto) 80.8 H (45-73) % Lymph % (Auto) 9.9 L (20-40) % [place] % (Auto) 6.5 (2-11) % Eos % (Auto) 1.4 (0-4) % Baso % (Auto) 1.1 (0-2) % Lymph # (Auto) 0.7 L (1.2-4.9) X10*3/uL [place] # (Auto) 0.4 (0.1-1.2) X10*3/uL Eos # (Auto) 0.1 (0.0-0.4) X10*3/uL Baso # (Auto) 0.1 (0.0-0.2) X10*3/uL Abs Immat Gran (auto) 0.02 (0.00-0.03) X10*3/uL Absolute Neuts (auto) 5.4 (2.0-8.3) x10*3/uL Absolute Nucleated RBC 0.000 (0.0-0.012) X10*3/uL Nucleated RBC % (auto) 0.0 (0.0-0.2) /100WBC PT (10.0-13.1) SEC INR (0.9-1.1) aPTT Heparin Protocol (53-77.9) SEC Sodium 143 (135-145) mmol/L Potassium 4.1 (3.3-5.1) mmol/L Chloride 107 (96-108) mmol/L Carbon Dioxide 28 (22-29) mmol/L Anion Gap 12 (12-20) BUN 14 (9-16) mg/dL Creatinine 0.84 (0.5-1.4) mg/dL Estim Creat Clear Calc 65.5 Estimated GFR > 60 Random Glucose 114 (60-115) mg/dL Calcium 9.2 (8.4-10.2) mg/dL Magnesium 2.0 (1.6-2.6) mg/dL Total Bilirubin 0.5 (0.0-1.0) mg/dL AST 22 (5-37) U/L ALT 24 (0-40) U/L Alkaline Phosphatase 75 (39-117) U/L Troponin I High Sens 4.7 (<3.5-35.0) ng/L B-Natriuretic Peptide (<100) pg/mL Total Protein 6.1 L (6.5-8.0) g/dL Albumin 4.0 (3.5-5.0) g/dL COVID-19 (MICHAEL) (Negative) COVID-19 Clin Com 01/03/23 01/03/23 01/03/23 Range/Units 11:01 14:51 14:51 WBC 5.9 (4.8-10.8) X10*3/uL RBC 4.29 L (4.60-5.80) X10*6/uL Hgb 13.3 L (14.0-18.0) g/dl Hct 39.3 L (42.0-52.0) % MCV 91.6 (80.0-98.0) fL MCH 31.0 (27.0-33.0) pg MCHC 33.8 (31.0-36.0) g/dl RDW 13.2 (11.0-16.0) % Plt Count 212 (160-400) X10*3/uL MPV 9.1 L (9.4-12.4) fL Immature Gran % (Auto) (0.0-0.4) % Neut % (Auto) (45-73) % Lymph % (Auto) (20-40) % [place] % (Auto) (2-11) % Eos % (Auto) (0-4) % Baso % (Auto) (0-2) % Lymph # (Auto) (1.2-4.9) X10*3/uL [place] # (Auto) (0.1-1.2) X10*3/uL Eos # (Auto) (0.0-0.4) X10*3/uL Baso # (Auto) (0.0-0.2) X10*3/uL Abs Immat Gran (auto) (0.00-0.03) X10*3/uL Absolute Neuts (auto) (2.0-8.3) x10*3/uL Absolute Nucleated RBC 0.000 (0.0-0.012) X10*3/uL Nucleated RBC % (auto) 0.0 (0.0-0.2) /100WBC PT 11.8 (10.0-13.1) SEC INR 1.0 (0.9-1.1) aPTT Heparin Protocol 32.3 L (53-77.9) SEC Sodium (135-145) mmol/L Potassium (3.3-5.1) mmol/L Chloride (96-108) mmol/L Carbon Dioxide (22-29) mmol/L Anion Gap (12-20) BUN (9-16) mg/dL Creatinine (0.5-1.4) mg/dL Estim Creat Clear Calc Estimated GFR Random Glucose (60-115) mg/dL Calcium (8.4-10.2) mg/dL Magnesium (1.6-2.6) mg/dL Total Bilirubin (0.0-1.0) mg/dL AST (5-37) U/L ALT (0-40) U/L Alkaline Phosphatase (39-117) U/L Troponin I High Sens (<3.5-35.0) ng/L B-Natriuretic Peptide 165 H (<100) pg/mL Total Protein (6.5-8.0) g/dL Albumin (3.5-5.0) g/dL COVID-19 (MICHAEL) (Negative) COVID-19 Clin Com 01/03/23 01/03/23 01/03/23 Range/Units 14:51 15:43 15:43 WBC (4.8-10.8) X10*3/uL RBC (4.60-5.80) X10*6/uL Hgb (14.0-18.0) g/dl Hct (42.0-52.0) % MCV (80.0-98.0) fL MCH (27.0-33.0) pg MCHC (31.0-36.0) g/dl RDW (11.0-16.0) % Plt Count (160-400) X10*3/uL MPV (9.4-12.4) fL Immature Gran % (Auto) (0.0-0.4) % Neut % (Auto) (45-73) % Lymph % (Auto) (20-40) % [place] % (Auto) (2-11) % Eos % (Auto) (0-4) % Baso % (Auto) (0-2) % Lymph # (Auto) (1.2-4.9) X10*3/uL [place] # (Auto) (0.1-1.2) X10*3/uL Eos # (Auto) (0.0-0.4) X10*3/uL Baso # (Auto) (0.0-0.2) X10*3/uL Abs Immat Gran (auto) (0.00-0.03) X10*3/uL Absolute Neuts (auto) (2.0-8.3) x10*3/uL Absolute Nucleated RBC (0.0-0.012) X10*3/uL Nucleated RBC % (auto) (0.0-0.2) /100WBC PT 11.5 (10.0-13.1) SEC INR 1.0 (0.9-1.1) aPTT Heparin Protocol 31.7 L (53-77.9) SEC Sodium (135-145) mmol/L Potassium (3.3-5.1) mmol/L Chloride (96-108) mmol/L Carbon Dioxide (22-29) mmol/L Anion Gap (12-20) BUN (9-16) mg/dL Creatinine (0.5-1.4) mg/dL Estim Creat Clear Calc Estimated GFR Random Glucose (60-115) mg/dL Calcium (8.4-10.2) mg/dL Magnesium (1.6-2.6) mg/dL Total Bilirubin (0.0-1.0) mg/dL AST (5-37) U/L ALT (0-40) U/L Alkaline Phosphatase (39-117) U/L Troponin I High Sens 8.0 D (<3.5-35.0) ng/L B-Natriuretic Peptide (<100) pg/mL Total Protein (6.5-8.0) g/dL Albumin (3.5-5.0) g/dL COVID-19 (MICHAEL) Negative (Negative) COVID-19 Clin Com See Note Independent Interpretation I performed an independent interpretation of an: Plain X-Ray Interpretation: No acute consolidation noted. EKG normal sinus rhythm at 62 beats per minute, AZ interval 146, QTC 414. Moderate voltage criteria for LVH. No ST elevation or depression. Radiology Impression Discussion of test interpretation with radiology: I have reviewed the radiologist's reading. Radiologist Impression: EXAMINATION: XR CHEST CLINICAL INFORMATION: Chest pain COMPARISON: None available. TECHNIQUE: 2 views of the chest were obtained. FINDINGS: No airspace consolidation or vascular congestion observed. Pleural surfaces appear to be clear. Hiatal hernia noted. There are multilevel thoracic spondylitic changes. Slight wedge deformities approximate level of T6-T8, not appearing hyperacute. XR/XR chest 2V IMPRESSION: No evidence for acute process. ? Hiatal hernia. Dictated By: Venu Fritz External Record Review External record reviewed: Inpatient record, Office record, Outpatient record, Prior outpatient labs, Prior outpatient radiology, Primary care record and Outside ED record Scores Heart Score History: -2- highly suspicious ECG: -0- normal Age: -2- > or = 65 Risk factory: -2- 3 or more risk factors or treated atherosclerosis Troponin: -0- < or = normal limit Score: 6 Risk: 16.6% Critical Care Time Critical Care Time Critical Care Time: Yes Total Critical Care Time: 45 Attestation: I have personally provided critical care time exclusive of time spent on separately billable procedures. Time includes review of lab data, radiology results, discussion with consultants, and monitoring for potential decompensation. Intervention performed as documented. Discussion with plant floor automation manager at [facility], [facility] and [facility]. Discharge Plan Discharge Clinical Impression: Non-ST elevation TN (NSTEMI) Patient Disposition: [facility] Transfer Details: [facility] for cardiac cath Prescriptions: No Action Flovent HFA 110 mcg/actuation HFA aerosol inhaler 2 puff inhalation BID 30 Days Qty: 12 6RF fluticasone propion-salmeterol [AirDuo RespiClick] 232-14 mcg/actuation aerosol powdr breath activated 1 inh inhalation BID 30 Days Qty: 1 3RF clopidogrel [Plavix] 75 mg tablet 75 mg PO DAILY 30 Days Qty: 30 0RF atorvastatin 20 mg tablet PO amlodipine-valsartan 5-320 mg tablet PO metoprolol succinate 25 mg tablet extended release 24 hr PO brimonidine 0.2 % drops ophthalmic (eye) aspirin 81 mg tablet,delayed release (DR/EC) 81 mg PO DAILY albuterol sulfate 90 mcg/actuation HFA aerosol inhaler 2 puff inhalation Q6H PRN nitroglycerin [Nitrostat] 0.4 mg tablet, sublingual 0.4 mg sublingual Q5M PRN Rx Instructions: do not exceed 3 doses per episode gabapentin 300 mg capsule 300 mg PO DAILY latanoprost 0.005 % drops 0 drp ophthalmic (eye) irbesartan 300 mg tablet 300 mg PO DAILY Interventions: Acute Care Transfer Worksheet (ED) Last Done: 01/03/23 17:52 Discharge Date/Time: 01/03/23 17:54
[2023-01-03 12:00] VITALS: BP 145/60; PULSE 51; RESP 16; TEMP 36.6; O2SAT 96
[2023-01-03] MEDS: Aspirin Enteric Coated 325 MG TABLET.DR PO (14:43)
--- NOTE | 2023-01-03 14:49 | MHC.EDTECH ---
Called [facility] @ 2:49pm for a possible xfer. Patient placement asked to speak with HODA Garcia
[2023-01-03] MEDS: Heparin Sodium,Porcine 5,000 UNIT/ML VIAL 4000 UNIT IVPUSH (14:57)
[2023-01-03 15:03] LABS: Hematocrit 39.3 % (42.0-52.0); Hemoglobin 13.3 g/dl (14.0-18.0); Mean Corpuscular HGB Conc 33.8 g/dl (31.0-36.0); Mean Corpuscular Volume 91.6 fL (80.0-98.0); Mean Platelet Volume 9.1 fL (9.4-12.4); Platelet Count 212 X10*3/uL (160-400); Prothrombin Time 11.5 SEC (10.0-13.1); Prothrombin Time 11.8 SEC (10.0-13.1); Red Blood Count 4.29 X10*6/uL (4.60-5.80); Red Cell Distribution Width 13.2 % (11.0-16.0); White Blood Count 5.9 X10*3/uL (4.8-10.8)
[2023-01-03 15:06] LABS: PTT Heparin Drip 31.7 SEC (53-77.9); PTT Heparin Drip 32.3 SEC (53-77.9)
[2023-01-03] MEDS: Heparin Sodium,Porcine/1/2NS 25,000 UNIT/250 ML IV.SOLN 9.91 UNIT IVCONT (15:58)
[2023-01-03 16:06] LABS: COVID-19 Test Negative (Negative); IDNOW Serial# 08D9AD1C
--- NOTE | 2023-01-03 16:40 | MHC.EDTECH ---
CALL RECEIVED FROM [facility] [place] LINE WITH ROOM ASSIGNMENT MASS MUTUAL 5, ROOM 16 RN TO RN: [phone] DR MCCRACKEN ACCEPTING THIS PT FOR TX
== END 2023-01-03 17:54 | disposition short-term general hospital (02) ==
PROVIDERS: Physician Assistant Medical; Emergency Provider Emergency Medicine; PCP Family Medicine
DX: I21.4 Non-ST elevation (NSTEMI) myocardial infarction (principal); R07.89 Other chest pain; R06.02 Shortness of breath; Z20.822 Contact with and (suspected) exposure to COVID-19; Z20.828 Contact with and (suspected) exposure to other viral communicable diseases; Z79.899 Other long term (current) drug therapy
CPT/HCPCS: 36415; 71046; 80053; 83735; 83880; 84484; 85025; 85027; 85610; 85730; 87635; 93005; 96365; 99285; J1643

== ENCOUNTER → 2023-01-07 09:17 | Outpatient (BNVA) | payer MEDICARE, OTHER, SELFPAY | PROVIDERS: PCP Family Medicine; Visit Provider Internal Medicine Pulmonary Disease | DX: J45.909 Unspecified asthma, uncomplicated (principal) | CPT/HCPCS: 99212 ==

== ENCOUNTER 2023-02-11 08:54 | Emergency (ER) | payer MEDICARE, OTHER, SELFPAY ==
--- NOTE | 2023-02-11 | ECG_ITS ---
Test Reason : cp Blood Pressure : / mmHG Vent. Rate : 059 BPM Atrial Rate : 059 BPM P-R Int : 154 ms QRS Dur : 096 ms QT Int : 434 ms P-R-T Axes : 058 -29 002 degrees QTc Int : 429 ms Sinus bradycardia Otherwise normal ECG When compared with ECG of 03-JAN-2023 10:17, No significant change was found Referred By: Generic ED Physician Electronically Signed By:CARLO POE MD
--- NOTE | ~2023-02-11 | CT_ITS ---
EXAMINATION: CT HEAD WITHOUT CONTRAST CLINICAL INFORMATION: 83-year-old male with headache COMPARISON: None available. TECHNIQUE: Contiguous axial imaging was performed from the skull base to vertex without intravenous administration of contrast. This CT examination was performed using dose optimization techniques as appropriate, variously including the following: *Automated exposure control *Adjustment of mA and/or kV according to patient size (this includes techniques or standardized protocols for targeted exams where dose is matched to indication/reason for exam; i.e. extremities or head) *Use of iterative reconstruction technique DLP: 704 mGy-cm FINDINGS: There is no evidence of acute intracranial hemorrhage or edematous territorial infarction. Arias-white matter differentiation is preserved. There is no abnormal attenuation within the brain parenchyma. The ventricles are normal in morphology and size. No evidence for obstructive hydrocephalus. No abnormal mass effect or midline shift. No extra-axial fluid collections. No acute soft tissue or osseous abnormalities. The mastoid air cells are well aerated and visualized paranasal sinuses reveal mucosal thickening of sphenoidal sinuses, mucous retention cyst with mucosal thickening in the right maxillary sinus and left maxillary sinus. There is mucosal thickening of right sphenoidal sinus There is deviation of the septum to the right.. CT/CT head/brain wo IV con IMPRESSION: 1. No evidence of acute intracranial hemorrhage or edematous territorial infarction. 2. Bilateral seen in the
--- NOTE | ~2023-02-11 | XR_ITS ---
EXAMINATION: XR CHEST CLINICAL INFORMATION: Chest pain COMPARISON: None available. TECHNIQUE: Frontal view of the chest was obtained. FINDINGS: The lungs are well-expanded and clear. The heart size and pulmonary vascularity is normal. No gross bony abnormality seen. No gross bony abnormality seen. XR/XR chest 1V IMPRESSION: Unremarkable chest exam.
[2023-02-11 08:59] VITALS: BP 187/95; PULSE 60; RESP 16; TEMP 36.9; O2SAT 97; BMI 27.4
[2023-02-11 09:19] LABS: MANUAL DIFF FLAG NO
[2023-02-11 09:24] LABS: Basophils Absolute Auto 0.1 X10*3/uL (0.0-0.2); Basophils Percent Auto 0.7 % (0-2); Eosinophils Absolute Auto 0.1 X10*3/uL (0.0-0.4); Eosinophils Percent Auto 1.6 % (0-4); Hematocrit 38.7 % (42.0-52.0); Imm Gran Abs Auto 0.03 X10*3/uL (0.00-0.03); Imm Gran Pct Auto 0.3 % (0.0-0.4); Lymphocytes Absolute Auto 0.8 X10*3/uL (1.2-4.9); Lymphocytes Percent Auto 9.6 % (20-40); Mean Corpuscular HGB Conc 33.6 g/dl (31.0-36.0); Mean Corpuscular Hemoglobin 30.7 pg (27.0-33.0); Mean Corpuscular Volume 91.3 fL (80.0-98.0); Mean Platelet Volume 9.2 fL (9.4-12.4); Monocytes Absolute Auto 0.7 X10*3/uL (0.1-1.2); Monocytes Percent Auto 7.6 % (2-11); Neutrophils Percent Auto 80.2 % (45-73); Platelet Count 220 X10*3/uL (160-400); Red Blood Count 4.24 X10*6/uL (4.60-5.80); White Blood Count 8.8 X10*3/uL (4.8-10.8)
--- NOTE | 2023-02-11 09:32 | ED.GENADULT ---
HPI - General Adult General Chief complaint: General Medical Stated complaint: Chest Pain Time Seen by Provider: 02/11/23 09:24 Source: patient Mode of arrival: ambulatory Limitations: no limitations History of Present Illness HPI narrative: This is an 83 years old male presented to the emergency department with 2 complain one is lightheadedness ongoing for about for 2 days, the other 1 is chest pain this morning which lasted for about 5 minutes resolved completely with the nitroglycerin. The patient has history of coronary artery disease , the patient was seen here in December 2022 was transferred to [facility] for a catheterization which according to the patient resulted in no stent. Patient was also history of hypertension and has history of peripheral vascular disease Onset (ago): day(s) (2) Location: head and chest Radiation: non-radiation Pain Consistency: now resolved Relieving factors: none and other (Nitro) Exacerbating factors: none Associated symptoms: denies other symptoms Related Data Home Medications Medication Instructions Recorded Confirmed albuterol sulfate 90 mcg/actuation 2 puff inhalation Q6H PRN 06/10/21 aerosol inhaler amlodipine 5 mg-valsartan 320 mg tab PO 06/10/21 tablet aspirin 81 mg tablet,delayed 81 mg PO DAILY 06/10/21 release atorvastatin 20 mg tablet mg PO 06/10/21 brimonidine 0.2 % eye drops drp ophthalmic (eye) 06/10/21 metoprolol succinate 25 mg mg PO 06/10/21 tablet,extended release 24 hr nitroglycerin 0.4 mg sublingual 0.4 mg sublingual Q5M PRN 06/10/21 tablet (Nitrostat) gabapentin 300 mg capsule 300 mg PO DAILY 06/09/22 irbesartan 300 mg tablet 300 mg PO DAILY 06/09/22 latanoprost 0.005 % eye drops 0 drp ophthalmic (eye) 06/09/22 Previous Rx's Medication Instructions Recorded Flovent HFA 110 mcg/actuation 2 puff inhalation BID 30 days #12 05/25/22 aerosol inhaler (fluticasone grams propionate) clopidogrel 75 mg tablet (Plavix) 75 mg PO DAILY 30 days #30 tabs 09/05/22 fluticasone 232 mcg-salmeterol 14 1 inh inhalation BID 30 days #1 ea 10/19/22 mcg/actuation breath activated powdr (AirDuo RespiClick) Allergies Allergy/AdvReac Type Severity Reaction Status Date / Time No Known Allergies Allergy Verified 01/07/23 09:24 Review of Systems Constitutional: Constitutional: Reports no additional constitutional complaints, Denies frequent falls and Denies headache(s) Eyes: Eyes: Reports no additional eye complaints ENT: Reports system reviewed and no additional complaints, except as documented, Denies vertigo, Denies dizziness and Denies headache(s) Cardiovascular: Cardiovascular: Reports chest pain and Denies syncope Neurologic: Denies confusion, Denies vertigo, Denies dizziness, Denies syncope, Denies frequent falls and Denies headache(s) Psychiatric: Psychiatric: Denies confusion [facility]LY [facility] Past Medical History [facility] Narrative: Coronary artery disease, hypertension, peripheral vascular disease Social History Social History Alcohol intake: unknown Advance Directives: Yes Advance Directives Information Provided: No Advance Directives on File: No Physical Exam ED Vital Signs: Vital Signs - 24 hr 02/11/23 08:59 02/11/23 09:51 02/11/23 10:42 Temperature 98.5 F Pulse Rate 60 59 56 Respiratory Rate 16 14 14 Blood Pressure 187/95 H 120/58 L 123/56 L Pulse Oximetry 97 96 95 Oxygen Delivery Method Room Air Room Air Room Air 02/11/23 12:39 02/11/23 14:18 02/11/23 15:47 Temperature 97.6 F Pulse Rate 58 55 67 Respiratory Rate 15 21 H 12 Blood Pressure 129/58 L 133/63 117/53 L Pulse Oximetry 95 95 100 Oxygen Delivery Method Room Air Room Air Room Air BMI result Body Mass Index 27.4 Const General: cooperative and no acute distress; No confusion Orientation/consciousness: No confusion HENMT Head: Yes normal to inspection Ears: hearing grossly normal bilaterally Face and sinus: Yes normal facial exam Mouth: Normal oral and palatal mucosa present Neck Neck: Yes normal visual inspection and Yes full ROM Chest Chest palpation & inspection: normal inspection of the chest Resp Effort & Inspection: normal respiratory effort Auscultation: clear to auscultation bilaterally Cardio Jugular venous distension: no JVD Rate: regular rate Rhythm: regular rhythm GI Inspection: Yes normal to inspection Palpation (GI): Soft to palpation, not firm, nontender and No Carnett's sign positive Percussion: Yes normal to percussion Skin General skin exam: no rashes or lesions noted Lesions: no lesions Rashes: no rashes Neuro General: No confusion Extrem General: Yes normal to inspection and Yes full ROM Course Reevaluation(s) Reevaluation #1: Remain chest pain free, blood pressure better, 2nd troponin is negative, the only complaint is mild headache will escalate to CT scan of head. I did review the record the from [facility] I reviewed the catheterization report he has a chronic total occlusion of the right coronary artery with the extensive collateral [id number], he has moderate LAD stenosis no lesion where amendable to PCI, Cardiology recommended the continue aspirin Plavix start isosorbide 30 mg daily Time: 13:03 Reevaluation #2: Remained asymptomatic a CT negative delta troponin flat no chest pain. At this point will discharge the patient home he will try to take the isosorbide the which is a new prescription for team a night instead of in the morning maybe some headache is secondatu to that Time: 15:56 Medications Administered Discontinued Medications Generic Name Dose Route Start Last Admin Trade Name Harpalq PRN Reason Stop Dose Admin Amlodipine Besylate 2.5 mg 02/11/23 09:40 02/11/23 09:52 Amlodipine Besylate 2.5 Mg Tablet PO 02/11/23 09:41 Not Given ONCE ONE Protocol Medical Decision Making Medical Decision Making [facility] Narrative: Patient presented with chest pain and lightheadedness symptoms are now resolved we will check high sensitive troponin x2 is serial EKG, I requested a copy of the Cath from [facility] Differential Diagnosis Differential Diagnoses: The differential diagnosis associated with the presentation includes Differential diagnoses ACS, chest wall pain, anxiety. Admission/Observation Consideration of admission/observation: Escalation of care including admission/observation considered Lab Data [facility] Lab Attestation statement: I reviewed the patient's lab results. 02/11/23 09:16 02/11/23 09:16 Labs: Lab Results 02/11/23 02/11/23 02/11/23 Range/Units 09:16 09:16 09:16 WBC 8.8 (4.8-10.8) X10*3/uL RBC 4.24 L (4.60-5.80) X10*6/uL Hgb 13.0 L (14.0-18.0) g/dl Hct 38.7 L (42.0-52.0) % MCV 91.3 (80.0-98.0) fL MCH 30.7 (27.0-33.0) pg MCHC 33.6 (31.0-36.0) g/dl RDW 13.0 (11.0-16.0) % Plt Count 220 (160-400) X10*3/uL MPV 9.2 L (9.4-12.4) fL Immature Gran % (Auto) 0.3 (0.0-0.4) % Neut % (Auto) 80.2 H (45-73) % Lymph % (Auto) 9.6 L (20-40) % Brule % (Auto) 7.6 (2-11) % Eos % (Auto) 1.6 (0-4) % Baso % (Auto) 0.7 (0-2) % Lymph # (Auto) 0.8 L (1.2-4.9) X10*3/uL Brule # (Auto) 0.7 (0.1-1.2) X10*3/uL Eos # (Auto) 0.1 (0.0-0.4) X10*3/uL Baso # (Auto) 0.1 (0.0-0.2) X10*3/uL Abs Immat Gran (auto) 0.03 (0.00-0.03) X10*3/uL Absolute Neuts (auto) 7.0 (2.0-8.3) x10*3/uL Absolute Nucleated RBC 0.000 (0.0-0.012) X10*3/uL Nucleated RBC % (auto) 0.0 (0.0-0.2) /100WBC Sodium 139 (135-145) mmol/L Potassium 4.0 (3.3-5.1) mmol/L Chloride 104 (96-108) mmol/L Carbon Dioxide 27 (22-29) mmol/L Anion Gap 12 (12-20) BUN 22 H (9-16) mg/dL Creatinine 0.80 (0.5-1.4) mg/dL Estim Creat Clear Calc 67.6 Estimated GFR > 60 Random Glucose 112 (60-115) mg/dL Calcium 9.6 (8.4-10.2) mg/dL Total Bilirubin 0.5 (0.0-1.0) mg/dL AST 21 (5-37) U/L ALT 23 (0-40) U/L Alkaline Phosphatase 70 (39-117) U/L Troponin I High Sens 3.4 D (<3.5-35.0) ng/L Total Protein 6.6 (6.5-8.0) g/dL Albumin 4.0 (3.5-5.0) g/dL 02/11/23 Range/Units 11:46 WBC (4.8-10.8) X10*3/uL RBC (4.60-5.80) X10*6/uL Hgb (14.0-18.0) g/dl Hct (42.0-52.0) % MCV (80.0-98.0) fL MCH (27.0-33.0) pg MCHC (31.0-36.0) g/dl RDW (11.0-16.0) % Plt Count (160-400) X10*3/uL MPV (9.4-12.4) fL Immature Gran % (Auto) (0.0-0.4) % Neut % (Auto) (45-73) % Lymph % (Auto) (20-40) % Brule % (Auto) (2-11) % Eos % (Auto) (0-4) % Baso % (Auto) (0-2) % Lymph # (Auto) (1.2-4.9) X10*3/uL Brule # (Auto) (0.1-1.2) X10*3/uL Eos # (Auto) (0.0-0.4) X10*3/uL Baso # (Auto) (0.0-0.2) X10*3/uL Abs Immat Gran (auto) (0.00-0.03) X10*3/uL Absolute Neuts (auto) (2.0-8.3) x10*3/uL Absolute Nucleated RBC (0.0-0.012) X10*3/uL Nucleated RBC % (auto) (0.0-0.2) /100WBC Sodium (135-145) mmol/L Potassium (3.3-5.1) mmol/L Chloride (96-108) mmol/L Carbon Dioxide (22-29) mmol/L Anion Gap (12-20) BUN (9-16) mg/dL Creatinine (0.5-1.4) mg/dL Estim Creat Clear Calc Estimated GFR Random Glucose (60-115) mg/dL Calcium (8.4-10.2) mg/dL Total Bilirubin (0.0-1.0) mg/dL AST (5-37) U/L ALT (0-40) U/L Alkaline Phosphatase (39-117) U/L Troponin I High Sens 4.4 (<3.5-35.0) ng/L Total Protein (6.5-8.0) g/dL Albumin (3.5-5.0) g/dL Independent Interpretation I performed an independent interpretation of an: EKG and CT Scan Interpretation: Normal sinus rhythm rate is [address]-T changes normal intervals, EKG unchanged from 01/03/2023 Radiology Impression Discussion of test interpretation with radiology: I have reviewed the radiologist's reading. Independent Historian Clinical information obtained from an independent historian. History obtained from or confirmed by: Spouse External Record Review External record reviewed: Outpatient record reviewed record from [facility] ,reviewed cardiac cath from [facility] Chronic Conditions Patient?s care impacted by: Other (CAD) Discharge Plan Discharge Clinical Impression: Chest pain, Headache Patient Disposition: Home, Self-Care Instructions: Chest Pain (DC) Additional Instructions: Follow-up with your office clerk routine on Tuesday, we did blood work for heart attack and came back negative return to the emergency room if you worse any concern Prescriptions: No Action Flovent HFA 110 mcg/actuation HFA aerosol inhaler 2 puff inhalation BID 30 Days Qty: 12 6RF fluticasone propion-salmeterol [AirDuo RespiClick] 232-14 mcg/actuation aerosol powdr breath activated 1 inh inhalation BID 30 Days Qty: 1 3RF clopidogrel [Plavix] 75 mg tablet 75 mg PO DAILY 30 Days Qty: 30 0RF atorvastatin 20 mg tablet PO amlodipine-valsartan 5-320 mg tablet PO metoprolol succinate 25 mg tablet extended release 24 hr PO brimonidine 0.2 % drops ophthalmic (eye) aspirin 81 mg tablet,delayed release (DR/EC) 81 mg PO DAILY albuterol sulfate 90 mcg/actuation HFA aerosol inhaler 2 puff inhalation Q6H PRN nitroglycerin [Nitrostat] 0.4 mg tablet, sublingual 0.4 mg sublingual Q5M PRN Rx Instructions: do not exceed 3 doses per episode gabapentin 300 mg capsule 300 mg PO DAILY latanoprost 0.005 % drops 0 drp ophthalmic (eye) irbesartan 300 mg tablet 300 mg PO DAILY Referrals: Zia Wright MD [Primary Care Provider] - 2 days
[2023-02-11 09:48] LABS: Alanine Aminotransferase 23 U/L (0-40); Alkaline Phosphatase 70 U/L (39-117); Anion Gap 12 (12-20); Aspartate Amino Transferase 21 U/L (5-37); Bilirubin Total 0.5 mg/dL (0.0-1.0); Blood Urea Nitrogen 22 mg/dL (9-16); Calcium 9.6 mg/dL (8.4-10.2); Carbon Dioxide 27 mmol/L (22-29); Chloride 104 mmol/L (96-108); Creatinine Clr Calc Pharmacy 67.6; Estimated Glomerular Filt Rate > 60; Glucose Random 112 mg/dL (60-115); Sodium 139 mmol/L (135-145); Total Protein 6.6 g/dL (6.5-8.0)
[2023-02-11 09:51] VITALS: BP 120/58; PULSE 59; RESP 14; O2SAT 96
[2023-02-11 09:55] LABS: Troponin-I High Sensitivity 3.4 ng/L (<3.5-35.0)
[2023-02-11 10:42] VITALS: BP 123/56; PULSE 56; RESP 14; O2SAT 95
[2023-02-11 12:18] LABS: Troponin-I High Sensitivity 4.4 ng/L (<3.5-35.0)
[2023-02-11 12:39] VITALS: BP 129/58; PULSE 58; RESP 15; O2SAT 95
[2023-02-11 14:18] VITALS: BP 133/63; PULSE 55; RESP 21; O2SAT 95
[2023-02-11 15:47] VITALS: BP 117/53; PULSE 67; RESP 12; TEMP 36.4; O2SAT 100
== END 2023-02-11 16:20 | disposition home or self-care (01) ==
PROVIDERS: Emergency Provider Emergency Medicine; PCP Family Medicine
DX: R07.89 Other chest pain (principal); R51.9 Headache, unspecified; Z79.899 Other long term (current) drug therapy
CPT/HCPCS: 36415; 70450; 71045; 80053; 84484; 85025; 93005; 99284

== ENCOUNTER 2023-04-04 06:10 | Day surgery (SDC) | payer MEDICARE, OTHER, SELFPAY ==
[2023-03-30 17:11] VITALS: BMI 25.8
--- NOTE | 2023-04-01 07:48 | MHC.SHP ---
Pre-Procedural Eval Section A Date of Service: 04/01/23 The patient is an INPATIENT: No Changes since office visit: No Cold of Flu in the past 2 weeks, No New Medical Problems, No Changes in Medication and No Patient answered all questions The History & Physical has been completed within 30 days and I have reviewed it.: Yes Section B Chief Complaint: Age-related nuclear cataract, right eye Allergies: Allergies Allergy/AdvReac Type Severity Reaction Status Date / Time shellfish derived AdvReac Vomiting,Di Verified 03/30/23 17:57 arrhea Plan Diagnosis/Plan: Unchanged I have reviewed the history and physical and performed a pertinent physical examination on my patient. No changes have occurred unless specified. Time Spent With Patient Time: Total time managing care of this patient today ____ minutes.
[2023-04-04] MEDS: Tropicamide 1 % Ophth Sol 3 ML BTL 1 DROP EYE-RIGHT ×3 (06:36→06:47)
[2023-04-04] MEDS: Cyclopentolate 1 % Ophth Sol 2 ML DRPBTL 1 DROP EYE-RIGHT ×3 (06:36→06:46)
[2023-04-04] MEDS: Tetracaine HCl/PF 0.5% Oph Sol 4 ML DROPS 1 DROP EYE-RIGHT (06:36)
[2023-04-04] MEDS: Phenylephrine HCL 2.5% Oph SoL 2 ML BOTTLE 1 DROP EYE-RIGHT ×3 (06:37→06:46)
[2023-04-04] MEDS: Ketorolac Tromethamine 0.5% Op 5 ML DROPS 1 DROP EYE-RIGHT ×3 (06:37→06:46)
[2023-04-04 06:44] VITALS: BP 152/64; PULSE 58; RESP 18; TEMP 36.6; O2SAT 97
[2023-04-04] MEDS: Lactated Ringers 500 ML 50 ML IV (07:24)
[2023-04-04 08:01] VITALS: BP 132/57; PULSE 52; RESP 18; TEMP 36.2; O2SAT 99
--- NOTE | 2023-04-04 08:01 | P.PCNO_ITS ---
Ophthalmology Procedure Procedure Date of Service: 04/04/23 Ophthalmology Viscoelastic: Healon Duet Dual Pack Pro Ophthalmology Lenses: TECNIS ZXR00 (22) Procedure Notes: PREOPERATIVE DIAGNOSIS: Decreased visual acuity right eye secondary to cataract POSTOPERATIVE DIAGNOSIS: Same PROCEDURE: Right cataract extraction with multifocal intraocular lens insertion SURGEON: Crispin Araujo M.D. ANESTHESIA: Topical/MAC ESTIMATED BLOOD LOSS: None COMPLICATIONS: None After obtaining informed consent, the patient was brought to the operating room suite and placed in the supine position. After adequate sedation per anesthesia, topical drops of Tetracaine were given to the right eye. The eye was then prepped and draped in the usual sterile fashion. The operating room microscope was then positioned over the operative eye and a lid speculum placed. A paracentesis was created. Viscoelastic was then instilled into the anterior chamber. A three plane incision was then created temporally, utilizing a 2.85 mm keratome. Capsulotomy forceps were then utilized to create a circular tear capsulotomy. Hydrodissection and hydrodelineation were carried out until adequate mobilization of the nucleus occurred. Phacoemulsification was then utilized to remove the dense central nucl eus followed by removal of the cortical material utilizing the automated aspiration irrigation unit. Viscoelastic was instilled into the posterior capsular bag followed by placement of a multifocal posterior chamber intraocular lens without difficulty. The residual Viscoelastic was then removed utilizing the automated IA machine. The wound was checked and found to be watertight. The patient tolerated the procedure well and the lid speculum was removed. Intracameral injection of Vigamox 0.1 mL followed by a subtenon injection of Kenalog-40 0.2 mL were administered. The patient will be seen in the a.m.
--- NOTE | 2023-04-04 08:17 | HO.ANESPROP2 ---
HPI - Anesthesia Eval Consult details Narrative: 83 yo male patient for Right cataract extraction, IOL insertion PMFSH Active Problems Active Problems: All Active Problems (Updated 03/30/23 @ 17:57 by Janine Montejo RN) Asthma (Acute)- inhalers twice a day Angina- last episode about 4 months ago. Used NTG HTN Hypercholesterolemia Past Medical History Medical History CAD (coronary artery disease) PVD (peripheral vascular disease) with claudication Family History Family history of problems with anesthesia: No Surgical History Surgical History Hx of colonoscopy History of Problems with Anesthesia: No Social History Social History Alcohol intake: unknown Patient Tobacco Use Status: Former Tobacco user Are you DNR?: No Advance Directives: No Advance Directives Information Provided: Yes Nutrition Risks: No Nutritional Risk Meds Allergies Allergy/AdvReac Type Severity Reaction Status Date / Time shellfish derived AdvReac Vomiting,Di Verified 04/04/23 07:37 arrhea Active Medications: Current Medications Lactated Ringer's (Lr) 500 mls @ 50 mls/hr IV .Q10H ANT Stop: 04/04/23 16:14 Last Admin: 04/04/23 07:24 Dose: 50 mls/hr Povidone Iodine (Povidone Iodine 5 % Ophth Soln 30 Ml Bottle) 1 appl EYE-RIGHT PREOP PRN PRN Reason: Pre-Op Surgical Implant Prophy Home Medications Medication Instructions Recorded Confirmed Last Taken Type albuterol sulfate 90 mcg/actuation 2 puff inhalation Q6H PRN 06/10/21 Unknown History aerosol inhaler amlodipine 5 mg-valsartan 320 mg tab PO 06/10/21 04/04/23 History tablet aspirin 81 mg tablet,delayed 81 mg PO DAILY 06/10/21 04/04/23 History release atorvastatin 20 mg tablet mg PO 06/10/21 Unknown History brimonidine 0.2 % eye drops drp ophthalmic (eye) 06/10/21 Unknown History metoprolol succinate 25 mg mg PO 06/10/21 04/04/23 History tablet,extended release 24 hr nitroglycerin 0.4 mg sublingual 0.4 mg sublingual Q5M PRN 06/10/21 Unknown History tablet (Nitrostat) gabapentin 300 mg capsule 300 mg PO DAILY 06/09/22 04/04/23 History irbesartan 300 mg tablet 300 mg PO DAILY 06/09/22 04/04/23 History latanoprost 0.005 % eye drops 0 drp ophthalmic (eye) 06/09/22 Unknown History Exam Exam Date and Time: April 04, 2023 0817 Height,Weight and Vital Signs: Height 5 ft 9 in Weight 79.379 kg Last Vital Signs Temp 97.9 F 04/04/23 06:44 Pulse 58 04/04/23 06:44 Resp 18 04/04/23 06:44 BP 152/64 H 04/04/23 06:44 Pulse Ox 97 04/04/23 06:44 O2 Del Method Room Air 04/04/23 06:44 Airway Mallampati Class: II TM Dist: >3cm Neck ROM: Full Denture: Upper and Lower Heart: RRR Lungs: CTAB Assessment and Plan Assessment Anesthesia Assessment: Anesthesia Plan Discussed and Chart Reviewed Final Anesthetic Review Family History of Problems with Anesthesia: No History of Problems with Anesthesia: No NPO: Yes ASA Class: III Final Preanesthetic Review: No Changes in Pt Med Stat, Meds/Allgs Chart Reviewed, Consent Obtained/Reviewed and Anes Risks/Benef Reviewed Patient Risk: Intermediate Procedure Risk: Low Assessment/Block/Sedation in SS: Assess/Block/Sedation-SS Anesthetic Plan Anesthetic Plan: MAC: Disposition: Standard PACU
== END 2023-04-04 08:15 | disposition home or self-care (01) ==
PROVIDERS: PCP Family Medicine; Visit Provider Ophthalmology
PROC: (CPT 66984; principal; 2023-04-04 07:30)
DX: H25.11 Age-related nuclear cataract, right eye (principal); H54.7 Unspecified visual loss; H40.1121 Primary open-angle glaucoma, left eye, mild stage; H18.413 Arcus senilis, bilateral; I10 Essential (primary) hypertension; Z79.51 Long term (current) use of inhaled steroids; Z79.899 Other long term (current) drug therapy; Z79.82 Long term (current) use of aspirin; Z87.891 Personal history of nicotine dependence
CPT/HCPCS: 66984; J2250; J3010; J3301; V2632

== ENCOUNTER 2023-04-18 09:23 | Day surgery (SDC) | payer MEDICARE, OTHER, SELFPAY ==
--- NOTE | 2023-04-08 08:27 | MHC.SHP ---
Pre-Procedural Eval Section A Date of Service: 04/08/23 The patient is an INPATIENT: No Changes since office visit: No Cold of Flu in the past 2 weeks, No New Medical Problems, No Changes in Medication and No Patient answered all questions The History & Physical has been completed within 30 days and I have reviewed it.: Yes Section B Chief Complaint: Primary open-angle glaucoma, bilateral,cataract Allergies: Allergies Allergy/AdvReac Type Severity Reaction Status Date / Time shellfish derived AdvReac Vomiting,Di Verified 04/04/23 07:37 arrhea Plan Diagnosis/Plan: Unchanged I have reviewed the history and physical and performed a pertinent physical examination on my patient. No changes have occurred unless specified. Time Spent With Patient Time: Total time managing care of this patient today ____ minutes.
[2023-04-08 14:09] VITALS: BMI 25.8
--- NOTE | 2023-04-14 12:39 | P.CONAN_ITS ---
Documented by User: Milly Yo NP 04/14/23 12:39 HPI - Anesthesia Eval Consult details Narrative: 83yo M for Left Cataract Extraction IOL Insertion, Trabeculectomy s/p right eye 04/04/23 with TIVA: Fent 50, Midaz 0.5 PMFSH Active Problems Active Problems: All Active Problems (Updated 04/08/23 @ 14:07 by Janine Montejo RN) Asthma (Acute) Past Medical History Medical History CAD (coronary artery disease) Cataract PVD (peripheral vascular disease) with claudication Family History Family history of problems with anesthesia: No Surgical History Surgical History History of cataract extraction Hx of colonoscopy History of Problems with Anesthesia: No Social History Social History Alcohol intake: unknown Patient Tobacco Use Status: Former Tobacco user Advance Directives: No Advance Directives Information Provided: Yes Meds Allergies Allergy/AdvReac Type Severity Reaction Status Date / Time shellfish derived AdvReac Vomiting,Di Verified 04/04/23 07:37 arrhea Home Medications Medication Instructions Recorded Confirmed Last Taken Type albuterol sulfate 90 mcg/actuation 2 puff inhalation Q6H PRN 06/10/21 Unknown History aerosol inhaler amlodipine 5 mg-valsartan 320 mg tab PO 06/10/21 04/04/23 History tablet aspirin 81 mg tablet,delayed 81 mg PO DAILY 06/10/21 04/04/23 History release atorvastatin 20 mg tablet mg PO 06/10/21 Unknown History brimonidine 0.2 % eye drops drp ophthalmic (eye) 06/10/21 Unknown History metoprolol succinate 25 mg mg PO 06/10/21 04/04/23 History tablet,extended release 24 hr nitroglycerin 0.4 mg sublingual 0.4 mg sublingual Q5M PRN 06/10/21 Unknown History tablet (Nitrostat) gabapentin 300 mg capsule 300 mg PO DAILY 06/09/22 04/04/23 History irbesartan 300 mg tablet 300 mg PO DAILY 06/09/22 04/04/23 History latanoprost 0.005 % eye drops 0 drp ophthalmic (eye) 06/09/22 Unknown History Exam Exam Date and Time: April 14, 2023 1239 Height,Weight and Vital Signs: Height 5 ft 9 in Weight 79.3 kg Assessment and Plan Assessment Anesthesia Assessment: Chart Reviewed Final Anesthetic Review Family History of Problems with Anesthesia: No History of Problems with Anesthesia: No Documented by User: Salena Berg MD 04/18/23 12:03 [facility] Past Medical History Medical History CAD (coronary artery disease) Cataract PVD (peripheral vascular disease) with claudication Surgical History Surgical History History of cataract extraction Hx of colonoscopy Social History Social History Alcohol intake: unknown Patient Tobacco Use Status: Former Tobacco user Advance Directives: No Advance Directives Information Provided: Yes Meds Allergies Allergy/AdvReac Type Severity Reaction Status Date / Time shellfish derived AdvReac Vomiting,Di Verified 04/04/23 07:37 arrhea Home Medications Medication Instructions Recorded Confirmed Last Taken Type albuterol sulfate 90 mcg/actuation 2 puff inhalation Q6H PRN 06/10/21 Unknown History aerosol inhaler amlodipine 5 mg-valsartan 320 mg tab PO 06/10/21 04/04/23 History tablet aspirin 81 mg tablet,delayed 81 mg PO DAILY 06/10/21 04/04/23 History release atorvastatin 20 mg tablet mg PO 06/10/21 Unknown History brimonidine 0.2 % eye drops drp ophthalmic (eye) 06/10/21 Unknown History metoprolol succinate 25 mg mg PO 06/10/21 04/04/23 History tablet,extended release 24 hr nitroglycerin 0.4 mg sublingual 0.4 mg sublingual Q5M PRN 06/10/21 Unknown History tablet (Nitrostat) gabapentin 300 mg capsule 300 mg PO DAILY 06/09/22 04/04/23 History irbesartan 300 mg tablet 300 mg PO DAILY 06/09/22 04/04/23 History latanoprost 0.005 % eye drops 0 drp ophthalmic (eye) 06/09/22 Unknown History Exam Airway Mallampati Class: II (edentulous) TM Dist: >3cm Neck ROM: Limited Denture: Upper and Lower Loose/Missing/Broken Teeth: Yes, Upper and Lower Heart: RRR Lungs: CTA Assessment and Plan Assessment Anesthesia Assessment: Anesthesia Plan Discussed Final Anesthetic Review NPO: Yes ASA Class: III Final Preanesthetic Review: Meds/Allgs Chart Reviewed, Consent Obtained/Reviewed and Anes Risks/Benef Reviewed Patient Risk: Intermediate Procedure Risk: Low Anesthetic Plan Anesthetic Plan: MAC: Disposition: Standard PACU
[2023-04-18 12:10] VITALS: BMI 25.7
[2023-04-18 12:12] VITALS: BP 152/94; PULSE 59; RESP 8; TEMP 36.2; O2SAT 97; BMI 25.7
[2023-04-18] MEDS: Lactated Ringers 500 ML 50 ML IV (12:14)
[2023-04-18] MEDS: Tetracaine HCl/PF 0.5% Oph Sol 4 ML DROPS 1 DROP EYE-LEFT (12:14)
[2023-04-18] MEDS: Cyclopentolate 1 % Ophth Sol 2 ML DRPBTL 1 DROP EYE-LEFT ×3 (12:15→12:21)
[2023-04-18] MEDS: Phenylephrine HCL 2.5% Oph SoL 2 ML BOTTLE 1 DROP EYE-LEFT ×3 (12:15→12:20)
[2023-04-18] MEDS: Tropicamide 1 % Ophth Sol 3 ML BTL 1 DROP EYE-LEFT ×3 (12:15→12:19)
[2023-04-18] MEDS: Ketorolac Tromethamine 0.5% Op 5 ML DROPS 1 DROP EYE-LEFT ×3 (12:15→12:19)
--- NOTE | 2023-04-18 12:27 | HO.PNOPHT ---
Ophthalmology Procedure Procedure Date of Service: 04/18/23 Ophthalmology Viscoelastic: Healon Duet Dual Pack Pro Ophthalmology Lenses: TECNIS [id number] (22) Procedure Notes: PREOPERATIVE DIAGNOSIS: Decreased visual acuity left eye secondary to cataract and glaucoma POSTOPERATIVE DIAGNOSIS: Same PROCEDURE: Left cataract extraction with toric intraocular lens insertion and trabeculectomy, left eye SURGEON: Crispin Araujo M.D. ANESTHESIA: Topical/MAC ESTIMATED BLOOD LOSS: None COMPLICATIONS: None After obtaining informed consent, the patient was brought to the operating room suite and placed in the supine position. After adequate sedation per anesthesia, topical drops of Tetracaine were given to the left eye. The eye was then prepped and draped in the usual sterile fashion. The operating room microscope was then positioned over the left eye and a lid speculum placed. 2% Lidocaine was instilled subconjunctivally. After awaiting 30 seconds, a paracentesis was created superiorly. Hemostasis was then achieved using wet field cautery. Mitomycin .4mg/ml was then placed in the conjunctival pocket and held in place for two minutes. The subconjunctival pocket was then irrigated copiously with 20 mls of BSS. Paracentesis was then created. Viscoelastic was then instilled into the anterior chamber. A crescent blade was then utilized to create a partial thickness sclera wound followed by advancement to clear cornea with the crescent blade. A keratome was then utilized to enter the anterior chamber. Capsulotomy forceps were then utilized to create a continuous circular tear capsulotomy. Hydrodissection and hydrodelineation were carried out until adequate mobilization of the nucleus occurred. Phacoemulsification was utilized to remove the dense central nucleus followed by removal of remnant cortical material utilizing the automated aspiration irrigation unit. Viscoelastic was then instilled into the posterior capsular bag followed by placement of a toric posterior chamber intraocular lens axis 173. Attention was then directed to create a trabeculectomy. A Tanya punch was then utilized to create the trabeculectomy. The residual Viscoelastic was then removed utilizing the automated IA machine. The egress of aqueous was evaluated and found to be appropriate. The conjunctiva was then closed with a 9-0 vicryl suture. BSS was then instilled into the anterior chamber creating a superior bleb, without obvious leakage. Intracameral injection of Vigamox 0.3%, 0.1 ml and subtenon injection of Kenalog-40 0.2 ml was given followed by an atropine drop. The patient tolerated the procedure well and will be followed up in the a.m.
[2023-04-18 13:18] VITALS: BP 148/88; PULSE 56; RESP 14; TEMP 36.2; O2SAT 96
== END 2023-04-18 13:43 | disposition home or self-care (01) ==
PROVIDERS: PCP Family Medicine; Visit Provider Ophthalmology
PROC: (CPT 66984; principal; 2023-04-18 13:10)
PROC: (CPT 66170; 2023-04-18 13:10)
DX: H25.12 Age-related nuclear cataract, left eye (principal); H40.1121 Primary open-angle glaucoma, left eye, mild stage; H40.1133 Primary open-angle glaucoma, bilateral, severe stage; H18.413 Arcus senilis, bilateral; I10 Essential (primary) hypertension; I73.9 Peripheral vascular disease, unspecified; I25.10 Atherosclerotic heart disease of native coronary artery without angina pectoris; Z79.01 Long term (current) use of anticoagulants; Z79.82 Long term (current) use of aspirin; Z79.899 Other long term (current) drug therapy; Z87.891 Personal history of nicotine dependence
CPT/HCPCS: 66984; 66170; J3010; J3301; J7315; V2788

== ENCOUNTER 2023-11-18 11:08 | Emergency (ER) | payer MEDICARE, OTHER, SELFPAY ==
[2023-11-18 11:37] VITALS: BP 155/71; PULSE 68; RESP 16; TEMP 36.5; O2SAT 97; BMI 27.4
--- NOTE | 2023-11-18 11:38 | ED.WOUNDLAC ---
HPI - Wound/Laceration General Chief Complaint: Wound/Laceration Stated Complaint: bleeding skin tear Time Seen by Provider: 11/18/23 11:46 Source: patient Mode of arrival: ambulatory Limitations: no limitations History of Present Illness HPI narrative: 83 year old male on Plavix presents to the emergency department for complaints of a skin tear to the right forearm. He reports he caught his arm on the door knob of his home on Tuesday and has had difficulty controlling bleeding since. He reports he spoke to his primary care provider earlier today who recommended he come to the emergency department. He reports the bleeding is slow but consistent denies any dizziness, lightheadedness, paresthesias, weakness, or change in range of motion. Pertinent positives and negatives discussed in the HPI. Related Data Home Medications Medication Instructions Recorded Confirmed amlodipine 5 mg-valsartan 320 mg tab PO 06/10/21 tablet aspirin 81 mg tablet,delayed 81 mg PO DAILY 06/10/21 release atorvastatin 20 mg tablet mg PO 06/10/21 brimonidine 0.2 % eye drops drp ophthalmic (eye) 06/10/21 metoprolol succinate 25 mg mg PO 06/10/21 tablet,extended release 24 hr nitroglycerin 0.4 mg sublingual 0.4 mg sublingual Q5M PRN 06/10/21 tablet (Nitrostat) gabapentin 300 mg capsule 300 mg PO DAILY 06/09/22 irbesartan 300 mg tablet 300 mg PO DAILY 06/09/22 latanoprost 0.005 % eye drops 0 drp ophthalmic (eye) 06/09/22 Previous Rx's Medication Instructions Recorded Flovent HFA 110 mcg/actuation 2 puff inhalation BID 30 days #12 05/25/22 aerosol inhaler (fluticasone grams propionate) clopidogrel 75 mg tablet (Plavix) 75 mg PO DAILY 30 days #30 tabs 09/05/22 fluticasone 232 mcg-salmeterol 14 1 inh inhalation BID 30 days #1 ea 05/04/23 mcg/actuation breath activated powdr albuterol sulfate 90 mcg/actuation 2 puff inhalation Q6H PRN 11/15/23 aerosol inhaler shortness of breath or wheezing 30 days #1 ea Allergies Allergy/AdvReac Type Severity Reaction Status Date / Time shellfish derived AdvReac Vomiting,Di Verified 04/04/23 07:37 arrhea Review of Systems Review of Systems: Yes all other systems are reviewed and are negative FOR[facility]LY [facility] Past Medical History Medical History CAD (coronary artery disease) Cataract PVD (peripheral vascular disease) with claudication Surgical History History of cataract extraction Hx of colonoscopy Social History Social History Alcohol intake: unknown Patient Tobacco Use Status: Former Tobacco user Physical Exam Vital Signs: Vital Signs: Last Vital Signs Temp 97.7 F 11/18/23 11:37 Pulse 68 11/18/23 11:37 Resp 16 11/18/23 11:37 BP 155/71 H 11/18/23 11:37 Pulse Ox 97 11/18/23 11:37 O2 Del Method Room Air 11/18/23 11:37 BMI result Body Mass Index 27.4 Nursing notes and vital signs reviewed. GENERAL APPEARANCE: A&0 x 4, generally well appearing, no acute distress HENMT: Normal to inspection, atraumatic, face symmetrical. Normal external ears, nose, and oropharynx clear. EYE: PERRLA, EOM intact, structures appear normal NECK: Supple without lymphadenopathy. No stiffness or restricted ROM. CHEST: Normal to inspection HEART: Normal rate and regular rhythm, normal S1/S2, no M/R/G LUNGS: LS CTA, moving air well. Able to speak in complete sentences. No crackles, wheezes, or rhonchi auscultated ABDOMEN: Soft, nontender, nondistended. Normal bowel sounds noted BACK: No CVAT, no obvious deformity EXTREMITIES: Moving all extremities without difficulty. No cyanosis, clubbing, or edema. Normal capillary refill. 2-3 cm skin tear on right forearm with active bleeding noted NEUROLOGICAL: Alert and oriented, moving all 4 extremities with equal strength. CN not formally tested but appearing grossly intact. Observed to ambulate with normal gait. Cognition normal SKIN: Warm and dry without any lesions, rash, or visible sores PSYCH: Cooperative, normal affect, normal thought process Course Course Course Narrative: This is a rapid medical exam: Additional HPI, ROS, PE not included below will be deferred to primary provider. Medical Decision Making Medical Decision Making MDM Narrative: Old records reviewed for previous imaging, lab studies, ECGs, and notes. Patient was assessed the emergency department with no acute distress or toxicity noted. Wound assessed, cleansed, and dressed with Telfa and gauze wrap. Patient educated to keep wound clean and dry and use nonstick bandages to prevent further skin tearing. Patient educated that he has on a blood thinner which will increase his bleeding, however; based on my assessment, there is low risk for hemorrhage at this time. Patient is safe for discharge at this time with plan for [id number] Tylenol for fever/discomfort with dosing as per packaging. HPI, PE, diagnostics, and plan discussed with patient and family with no unanswered questions at this time. Strict return precautions given to return to the emergency department with new, worsening, or concerning emergent symptoms. Recommended to follow-up with there primary care provider in 24-48 hours for further treatment and management. Differential Diagnosis Differential Diagnoses: The differential diagnosis associated with the presentation includes skin tear, laceration, contusion, abrasion, fracture, dislocation, cellulitis, sepsis, malignancy Discharge Plan Discharge Clinical Impression: Skin tear of right upper extremity Patient Disposition: Home, Self-Care Instructions: Skin Tear (ED) Additional Instructions: Keep wound clean and dry to prevent infection. The bleeding will stop and does not require an intervention at this. You will have increased bleeding whenever you have an injury as you are on a blood thinner called plavix. Prescriptions: No Action Flovent HFA 110 mcg/actuation HFA aerosol inhaler 2 puff inhalation BID 30 Days Qty: 12 6RF fluticasone propion-salmeterol 232-14 mcg/actuation aerosol powdr breath activated 1 inh inhalation BID 30 Days Qty: 1 3RF albuterol sulfate 90 mcg/actuation HFA aerosol inhaler 2 puff inhalation Q6H PRN (Reason: shortness of breath or wheezing) 30 Days Qty: 1 6RF clopidogrel [Plavix] 75 mg tablet 75 mg PO DAILY 30 Days Qty: 30 0RF atorvastatin 20 mg tablet PO amlodipine-valsartan 5-320 mg tablet PO metoprolol succinate 25 mg tablet extended release 24 hr PO brimonidine 0.2 % drops ophthalmic (eye) aspirin 81 mg tablet,delayed release (DR/EC) 81 mg PO DAILY nitroglycerin [Nitrostat] 0.4 mg tablet, sublingual 0.4 mg sublingual Q5M PRN Rx Instructions: do not exceed 3 doses per episode gabapentin 300 mg capsule 300 mg PO DAILY latanoprost 0.005 % drops 0 drp ophthalmic (eye) irbesartan 300 mg tablet 300 mg PO DAILY Referrals: Zia Wright MD [Primary Care Provider] - Interventions: ED Discharge Assessment Last Done: 11/18/23 11:48 Print Language: Turkish
[2023-11-18 11:48] VITALS: BP 155/71; PULSE 68; RESP 16; TEMP 36.5; O2SAT 97
== END 2023-11-18 11:51 | disposition home or self-care (01) ==
LOC: HO.ED 11:49
PROVIDERS: Emergency Provider Emergency Medicine; PCP Family Medicine
DX: S51.811A Laceration without foreign body of right forearm, initial encounter (principal); I73.9 Peripheral vascular disease, unspecified; I25.10 Atherosclerotic heart disease of native coronary artery without angina pectoris; Z79.02 Long term (current) use of antithrombotics/antiplatelets; W45.8XXA Other foreign body or object entering through skin, initial encounter; Y93.9 Activity, unspecified; Y92.009 Unspecified place in unspecified non-institutional (private) residence as the place of occurrence of the external cause; Y99.9 Unspecified external cause status
CPT/HCPCS: 99282

== ENCOUNTER 2024-01-10 09:27 | Outpatient (AMB) | payer MEDICARE, OTHER, SELFPAY ==
[2024-01-10 09:29] VITALS: BP 148/72; PULSE 63; O2SAT 97; BMI 27.7
--- NOTE | 2024-01-10 09:29 | MHC.OFFVIS ---
Vital Signs 01/10/24 09:29 Height 5 ft 8 in Weight 181 lb 14.102 oz BMI 27.7 BP 148/72 H Blood Pressure Location Rt brachial Position Sitting Pulse 63 Pulse Source Doppler Pulse Oximetry (%) 97 Oxygen Delivery Method Room Air Intake Visit Reasons: Asthma Allergies shellfish derived Adverse Reaction (Verified 04/04/23 07:37) Vomiting,Diarrhea HPI HPI Asthma: Details: 83-year-old gentleman, former 30+ pack-years smoker, quit 1989 now followed for underlying mild persistent asthma now reasonably well controlled on air duo and albuterol MDI. Patient denies any recent exacerbations. [facility] Medical History CAD (coronary artery disease) Cataract PVD (peripheral vascular disease) with claudication Surgical History History of cataract extraction Hx of colonoscopy Social History Alcohol intake: unknown Patient Tobacco Use Status: Former Tobacco user Review of Systems Resp Denies cough, Denies excessive phlegm production and Denies wheezing Aller/Immun Denies wheezing Physical Exam Vital Signs: Last Vital Signs Pulse 63 01/10/24 09:29 BP 148/72 H 01/10/24 09:29 Pulse Ox 97 01/10/24 09:29 Oxygen Delivery Method Room Air 01/10/24 09:29 BMI result Body Mass Index 27.7 Const General: no acute distress and alert Nutritional Appearance: not obese Orientation/consciousness: Other orientation findings ( oriented) HEENT Head: Yes atraumatic Eyes General: appearance normal, both eyes and all related structures Sclerae: sclerae normal EOM: EOMs intact bilaterally Neck Neck: Yes supple Lymphatic: no lymphadenopathy noted Resp Effort & Inspection: normal respiratory effort and no use of accessory muscles Auscultation: clear to auscultation bilaterally Cardio Rate: regular rate Rhythm: regular rhythm Heart sounds: no gallops, no murmurs and no rubs Skin General skin exam: other ( warm) Extrem General: No clubbing, No cyanosis and No edema Assessment & Plan Assessment & Plan (1) Asthma: Code(s): J45.909 - Unspecified asthma, uncomplicated Category: Medical Plan: Well controlled on current regimen of albuterol MDI and AirDuo. Continue current regimen. Coding Level of Care Code Est Pt Level 3 (54569) Diagnoses Asthma J45.909
== END 2024-01-10 09:44 | disposition home or self-care (01) ==
PROVIDERS: PCP Family Medicine; Visit Provider Internal Medicine Pulmonary Disease
DX: J45.909 Unspecified asthma, uncomplicated (principal)
CPT/HCPCS: 99213

== ENCOUNTER → 2024-01-10 09:27 | Outpatient (BNVA) | payer MEDICARE, OTHER, SELFPAY | PROVIDERS: PCP Family Medicine; Visit Provider Internal Medicine Pulmonary Disease | DX: J45.30 Mild persistent asthma, uncomplicated (principal); Z79.899 Other long term (current) drug therapy | CPT/HCPCS: 99212 ==

== ENCOUNTER 2024-07-03 11:00 | Outpatient (RCR) | payer MEDICARE, OTHER, SELFPAY | END 2024-07-09 15:51 | disposition home or self-care (01) | LOC: HO.PT 11:00 | PROVIDERS: PCP Family Medicine; Visit Provider Registered Nurse | DX: Z98.890 Other specified postprocedural states (principal) | CPT/HCPCS: 97110; 97112; 97116; 97140; 97161; 97162; 97530 ==

== ENCOUNTER 2024-07-18 08:45 | Outpatient (AMB) | payer MEDICARE, OTHER, SELFPAY ==
[2024-07-18 08:57] VITALS: BP 148/60; PULSE 52; O2SAT 98; BMI 26.8
--- NOTE | 2024-07-18 08:57 | MHC.OFFVIS ---
Vital Signs 07/18/24 08:57 Height 5 ft 8 in Weight 176 lb 5.917 oz BMI 26.8 BP 148/60 H Blood Pressure Location Rt brachial Position Sitting Pulse 52 Pulse Source Doppler Pulse Oximetry (%) 98 Oxygen Delivery Method Room Air Intake Visit Reasons: Asthma Allergies shellfish derived Adverse Reaction (Verified 04/04/23 07:37) Vomiting,Diarrhea HPI HPI Asthma: Details: 84-year-old gentleman, former 30+ pack-years smoker, quit 1989 now followed for underlying mild persistent asthma now reasonably well controlled on air duo and albuterol MDI. Patient denies any recent exacerbations. [facility] Medical History CAD (coronary artery disease) Cataract PVD (peripheral vascular disease) with claudication Surgical History History of cataract extraction Hx of colonoscopy Social History Alcohol intake: unknown Patient Tobacco Use Status: Former Tobacco user Review of Systems Const Denies daytime sleepiness, Denies excessive sweating, Denies fatigue, Denies fever(s), Denies lethargy, Denies malaise, Denies night sweats, Denies snoring and Denies weight loss Eyes Denies blurry vision and Denies itchy eyes ENT Denies nasal congestion, Denies post nasal drip, Denies sinus pain, Denies sinus pressure and Denies other ( Thrush) Card Denies chest pain, Denies pedal edema, Denies dyspnea, Denies orthopnea and Denies paroxysmal nocturnal dyspnea Resp Denies cough, Denies hemoptysis, Denies excessive phlegm production, Denies dyspnea, Denies snoring and Denies wheezing GI Denies abdominal pain and Denies heartburn Musc Denies myalgias, Denies arthralgias and Denies joint swelling Skin/Breast Denies rash Neuro Denies memory loss and Denies seizure-like activity Psych Denies abnormal sleep pattern, Denies anxiety and Denies memory loss Endo Denies excessive sweating, Denies fatigue and Denies heat intolerance Calvin/Lymph Denies easy bruising Aller/Immun Denies itchy eyes, Denies seasonal rhinorrhea and Denies wheezing Physical Exam Vital Signs: Last Vital Signs Pulse 52 07/18/24 08:57 BP 148/60 H 07/18/24 08:57 Pulse Ox 98 07/18/24 08:57 Oxygen Delivery Method Room Air 07/18/24 08:57 BMI result Body Mass Index 26.8 Const General: no acute distress and alert Nutritional Appearance: not obese Orientation/consciousness: Other orientation findings ( oriented) HEENT Head: Yes atraumatic Eyes General: appearance normal, both eyes and all related structures Sclerae: sclerae normal EOM: EOMs intact bilaterally Neck Neck: Yes supple Lymphatic: no lymphadenopathy noted Resp Effort & Inspection: normal respiratory effort and no use of accessory muscles Auscultation: clear to auscultation bilaterally Cardio Rate: regular rate Rhythm: regular rhythm Heart sounds: no gallops, no murmurs and no rubs Skin General skin exam: other ( warm) Extrem General: No clubbing, No cyanosis and No edema Assessment & Plan Assessment & Plan (1) Asthma: Code(s): J45.909 - Unspecified asthma, uncomplicated Category: Medical Plan: Well controlled on AirDuo and albuterol MDI. Continue current regimen. Coding Level of Care Code Est Pt Level 3 (56148) Diagnoses Asthma J45.909
== END 2024-07-18 09:12 | disposition home or self-care (01) ==
PROVIDERS: PCP Family Medicine; Visit Provider Internal Medicine Pulmonary Disease
DX: J45.909 Unspecified asthma, uncomplicated (principal)
CPT/HCPCS: 99213

== ENCOUNTER → 2024-07-18 08:45 | Outpatient (BNVA) | payer MEDICARE, OTHER, SELFPAY | PROVIDERS: PCP Family Medicine; Visit Provider Internal Medicine Pulmonary Disease | DX: J45.30 Mild persistent asthma, uncomplicated (principal) | CPT/HCPCS: 99212 ==